=== PATIENT | male | born 1980 | race American Indian/Alaskan Native ===

== ENCOUNTER 2022-04-08 12:03 | Inpatient (IN) | payer MEDICAID ==
[2022-04-08] MEDS ORDERED: ONDANSETRON 4 MG/2 ML INJ IV ONE (14:49)
[2022-04-08] MEDS ORDERED: SODIUM CHLORIDE 0.9% 1000 ML IV SOLN IV ONE (14:49)
[2022-04-08] MEDS ORDERED: cefTRIAXone/NS 1 GM/50 ML 1 GM/50 ML BAG IV ONE (14:49)
[2022-04-08] MEDS ORDERED: VANCOMYCIN 1,000 MG in SODIUM CHLORIDE 0.9% 500 ML 500 ML IV ONE (14:49)
[2022-04-08] MEDS ORDERED: VANCOMYCIN PHARMACY TO DOSE IV SCH (15:00)
--- NOTE | 2022-04-08 15:17 | XRay Report ---
CHEST 1 VIEW 04/08/2022 3:03 PM INDICATION / CLINICAL INFORMATION: HIV, septic in a week. COMPARISON: None available. FINDINGS: SUPPORT DEVICES: None. HEART / MEDIASTINUM: No significant abnormality. LUNGS / PLEURA: No significant pulmonary or pleural abnormality. No pneumothorax. ADDITIONAL FINDINGS: No significant additional findings. IMPRESSION: 1. No acute findings. Signer Name: Rishabh Ferreira MD Signed: 04/08/2022 3:13 PM Workstation Name: [id number] [id number]
[2022-04-08 15:33] LABS: Hematocrit 24.2 % (35.5-45.6); Hemoglobin 8.2 gm/dl (11.8-15.2); Mean Corpuscular HGB Conc 34 % (32-34); Mean Corpuscular Volume 81 fl (84-94); Platelet Count 426 K/mm3 (140-440); Red Blood Count 2.99 M/mm3 (3.65-5.03); Red Cell Distribution Width 14.9 % (13.2-15.2)
[2022-04-08 15:42] LABS: INR 1.13 (0.87-1.13)
[2022-04-08 15:47] LABS: Alanine Aminotransferase 10 units/L (7-56); BUN/Creatinine Ratio 45
--- NOTE | 2022-04-08 15:50 | Emergency Department Report ---
ED General Adult HPI - General Chief complaint: Weakness Stated complaint: GENERAL WEAKNESS Time Seen by Provider: 04/08/22 14:09 Source: patient, EMS ( EMS documentation not available at time of chart dictation ), RN notes reviewed, old records reviewed Mode of arrival: Stretcher Limitations: Physical Limitation - History of Present Illness Initial comments: The patient was evaluated in the emergency department for symptoms described in the history of present illness. He/she was evaluated in the context of the global COVID-19 pandemic, which necessitated consideration that the patient might be at risk for infection with the virus that causes COVID-19. Institutional protocols and algorithms that pertain to the evaluation of patients at risk for COVID-19 are in a state of rapid change based on information released by regulatory bodies including the CDC and federal and state organizations. These policies and algorithms were followed during the patient's care in the emergency department. Please note that these policies, procedures and recommendations changed on a rapid basis. This is a 42-year-old gentleman with history of HIV, unknown CD4 count, unknown viral load, who is not compliant with antiviral therapy for the past 6 months, omar talbert presents to the ER today with a complaint of weakness, malaise, fatigue, inability to walk or complete ADLs, generalized weakness, and scrotal pain. He further reports that "my balls are busted." He is able to move 4 extremities. He endorses a gradual decline in functional status over the past 6 months. He used to receive his HIV care at [facility]. He is not taking his antivirals. He denies headache, neck pain, chest pain, abdominal pain, shortness of breath. His symptoms are constant, gradually getting worse, testicular pain increases with palpation, and decreases with rest -: Gradual, days(s), week(s) Location: genitals Quality: stabbing, aching Consistency: constant Improves with: rest Worsens with: movement - Related Data Allergies Allergy/AdvReac Type Severity Reaction Status Date / Time No Known Allergies Allergy Verified 04/08/22 12:08 ED Review of Systems ROS: Stated complaint: GENERAL WEAKNESS Other details as noted in HPI Constitutional: malaise, weakness. denies: fever Eyes: denies: vision change Respiratory: denies: cough Cardiovascular: denies: chest pain Gastrointestinal: denies: abdominal pain Genitourinary: testicular pain Musculoskeletal: denies: back pain Skin: rash, lesions Neurological: weakness Psychiatric: anxiety ED Physical Exam - General Limitations: Physical Limitation General appearance: alert, anxious, in distress - Head Head exam: Present: normocephalic, other (Temporal wasting is noted) - Eye Eye exam: Present: normal appearance, EOMI - ENT ENT exam: Present: normal exam, mucous membranes dry, normal external ear exam, other (Poor dentition is noted). Absent: mucous membranes moist - Neck Neck exam: Present: normal inspection, full ROM. Absent: tenderness, meningismus - Respiratory Respiratory exam: Present: normal lung sounds bilaterally, accessory muscle use. Absent: respiratory distress, wheezes, rales, rhonchi, stridor, decreased breath sounds - Cardiovascular Cardiovascular Exam: Present: normal rhythm, tachycardia. Absent: bradycardia, irregular rhythm, systolic murmur, diastolic murmur, rubs, gallop - GI/Abdominal GI/Abdominal exam: Present: soft. Absent: distended, tenderness, guarding, rebound, rigid, pulsatile mass - Rectal Rectal exam: Present: normal inspection - exam: Present: testicular tenderness, other (Obvious open wounds noted to the bilateral testicles, with purulent discharge. There is testicular tenderness noted). Absent: normal inspection External exam: Present: erythema, swelling, other (There is no peridium tenderness.). Absent: normal external exam - Extremities Exam Extremities exam: Present: full ROM, other (2+ pulses noted in the bilateral upper and lower extremities. There is no palpable cord. negative Homans sign. Muscular compartments are soft. The pelvis is stable.). Absent: normal inspection, calf tenderness - Back Exam Back exam: Present: normal inspection. Absent: tenderness, CVA tenderness (R), CVA tenderness (L), paraspinal tenderness, vertebral tenderness - Neurological Exam Neurological exam: Present: alert, other (There is no facial droop. The tongue is midline. EOMI. 5 out of 5 strength in 4 extremities). Absent: motor sensory deficit - Psychiatric Psychiatric exam: Present: anxious - Skin Skin exam: Present: warm, normal color, rash, other (Nonblanching macules and papules noted on the palms, feet, upper and lower extremities). Absent: vesicles, pallor, abrasion ED Course Vital Signs 04/08/22 04/08/22 04/08/22 12:06 13:30 13:46 Temperature 98.1 F Pulse Rate 123 H 116 H Respiratory 14 12 Rate Blood Pressure 139/103 Blood Pressure 131/110 [Left] O2 Sat by Pulse 99 97 Oximetry 04/08/22 04/08/22 04/08/22 14:00 14:16 14:30 Temperature Pulse Rate 115 H 115 H 118 H Respiratory 15 12 14 Rate Blood Pressure 139/103 129/101 129/101 Blood Pressure [Left] O2 Sat by Pulse Oximetry 04/08/22 04/08/22 04/08/22 14:46 14:52 15:00 Temperature 98.4 F Pulse Rate 119 H 111 H 109 H Respiratory 17 18 11 L Rate Blood Pressure 129/101 129/101 Blood Pressure 144/90 [Left] O2 Sat by Pulse 99 Oximetry 04/08/22 04/08/22 04/08/22 15:16 15:30 15:46 Temperature Pulse Rate 106 H 104 H 103 H Respiratory 12 15 20 Rate Blood Pressure 149/99 149/99 151/99 Blood Pressure [Left] O2 Sat by Pulse Oximetry 04/08/22 04/08/22 04/08/22 16:00 16:10 16:16 Temperature Pulse Rate 100 H 105 H Respiratory 16 14 Rate Blood Pressure 151/99 148/99 Blood Pressure [Left] O2 Sat by Pulse 91 99 94 Oximetry 04/08/22 04/08/22 04/08/22 16:24 16:30 16:46 Temperature 98.5 F Pulse Rate 111 H 97 H 90 Respiratory 18 11 L 12 Rate Blood Pressure 148/99 148/99 167/105 Blood Pressure [Left] O2 Sat by Pulse 99 100 84 Oximetry 04/08/22 04/08/22 04/08/22 17:00 17:16 17:30 Temperature Pulse Rate 100 H 95 H 86 Respiratory 12 15 13 Rate Blood Pressure 167/105 149/104 149/104 Blood Pressure [Left] O2 Sat by Pulse Oximetry 04/08/22 04/08/22 04/08/22 17:46 18:00 18:16 Temperature Pulse Rate 86 89 94 H Respiratory 12 16 14 Rate Blood Pressure 160/107 160/107 149/104 Blood Pressure [Left] O2 Sat by Pulse 93 Oximetry 04/08/22 18:30 Temperature Pulse Rate 96 H Respiratory 10 L Rate Blood Pressure 149/104 Blood Pressure [Left] O2 Sat by Pulse 92 Oximetry - Reevaluation(s) Reevaluation #1: 04/08/22 19:22 Differential diagnosis, including but not limited to: Disseminated syphilis, HIV/AIDS, scrotal abscess, cellulitis, Alissa's gangrene Assessment and plan: 42-year-old gentleman with complaints of weakness, malaise, fatigue, tachycardia, with lactic acidosis, likely experiencing natural history of untreated HIV/AIDS. He is awake, alert, oriented and not encephalopathic and he does not have meningeal signs. He has nonblanching macules which are nontender on his upper and lower extremities, palms and soles, very suspicious for syphilis. Chest x-ray unremarkable. Abdomen soft and benign. Scrotal exam shows obvious scrotal wounds, with purulent discharge, suspicious for scrotal wound and infection. Clinically, the perineum does not appear to be involved, and I do not think that this patient has Joe's gangrene. A code sepsis is called overhead. Treat patient's symptoms, and start appropriate broad-spectrum antibiotics. Patient will be admitted to our medical service with urology consultation. Contacted urology, Dr. Norwood. Discussed the patient's history, physical, laboratory studies and clinical impression. His group will follow in consultation. I do not suspect Alissa's gangrene. Nevertheless, we will obtain CT imaging abdomen pelvis We will reassess. 04/08/22 19:54 Dr Missy Faustin to admit to IMS 04/08/22 20:22 Patient reports no sexual contact for months. Therefore, monkey pox unlikely Reevaluation #2: 04/08/22 20:48 CT scan abdomen pelvis reviewed and appreciated. Patient reports history of open wound to his testicles that is chronic. This is not an acute infection. I would expect the CT scan findings, and it appears that there is communication with the testicles in the outside environment. Patient will require medical optimization and resuscitation prior to operative intervention. - Consultations Consultation #1: 04/08/22 20:10 Dr Garsia of ID to follow in consultation Recommends Flagyl every 8 hours. If patient sexually active with any partners in the past 2 months, consider sending swab for monkey pox. ED Medical Decision Making - Lab Data Result diagrams: 04/08/22 14:59 04/08/22 14:59 Vital Signs 04/08/22 04/08/22 12:06 14:52 Temperature 98.1 F 98.4 F Pulse Rate 123 H 111 H Respiratory 14 18 Rate Blood Pressure 131/110 144/90 [Left] O2 Sat by Pulse 99 99 Oximetry Lab Results 04/08/22 04/08/22 04/08/22 Range/Units 14:59 14:59 14:59 WBC 6.6 (4.5-11.0) K/mm3 RBC 2.99 L (3.65-5.03) M/mm3 Hgb 8.2 L (11.8-15.2) gm/dl Hct 24.2 L (35.5-45.6) % MCV 81 L (84-94) fl MCH 28 (28-32) pg MCHC 34 (32-34) % RDW 14.9 (13.2-15.2) % Plt Count 426 (140-440) K/mm3 [facility] [facility] % (Auto) Rn Field PT 15.8 H (12.2-14.9) Sec. INR 1.13 (0.87-1.13) Sodium 135 L (137-145) mmol/L Potassium 4.9 (3.6-5.0) mmol/L Chloride 98.0 (98-107) mmol/L Carbon Dioxide 24 (22-30) mmol/L Anion Gap 18 mmol/L BUN 48 H (9-20) mg/dL Creatinine 1.2 (0.8-1.3) mg/dL Estimated GFR > 60 ml/min BUN/Creatinine Ratio 45 % Glucose 103 H (75-100) mg/dL Calcium 8.8 (8.4-10.2) mg/dL Magnesium 2.60 H (1.7-2.3) mg/dL Total Bilirubin 0.30 (0.1-1.2) mg/dL AST 27 (5-40) units/L ALT 10 (7-56) units/L Alkaline Phosphatase 255 H (35-129) units/L Total Creatine Kinase 74 (55-170) units/L Total Protein 10.4 H (6.3-8.2) g/dL Albumin 2.9 L (3.9-5) g/dL Albumin/Globulin Ratio 0.4 % - Radiology Data Radiology results: pending, report reviewed, image reviewed CT ABDOMEN AND PELVIS WITH IV CONTRAST INDICATION: Testicular wound, infection, end-stage HIV 60ml of omni 350. COMPARISON: None available. TECHNIQUE: All CT scans at this facility use dose modulation, automated exposure control, iterative reconstruction or weight based dosing, when appropriate, to reduce radiation dose to as low as reasonably achievable. FINDINGS: Lung Bases: Punctate lucencies in both lower lungs may be tiny intraparenchymal blebs. Skeletal System: No acute abnormality. ABDOMEN: Liver: No significant abnormality. Gallbladder: No significant abnormality. Bile Ducts: There is mild intrahepatic and common duct dilatation. Adrenals: No significant abnormality. Right Kidney: No significant abnormality. Left Kidney: No significant abnormality. Pancreas: No significant abnormality. Spleen: No significant abnormality. Upper GI tract: No significant abnormality. Lymph Nodes: No significant adenopathy. Aorta: No significant abnormality. Additional Findings: Small bowel is diffusely fluid-filled and mildly distended. Mild diffuse anasarca. PELVIS: Colon: No acute abnormality. Urinary Bladder and Distal Ureters: Bladder is distended. Appendix: Not visualized. Lymph Nodes: No significant adenopathy. Additional Findings: Edema and several punctate foci of gas are noted at the base of the penis. Right lateral to the prostate, there is a curvilinear gas and fluid collection which measures 2.6 x 1.1 cm on axial image 78. There is diffuse edema within the perineal soft tissues, these are not completely included. IMPRESSION: 1. Diffuse soft tissue edema about the perineum extending to the base of the penis and scrotum. There are several associated punctate foci of soft tissue gas. This is incompletely included. Findings are consistent with infection. In addition, there is a persistent gas and fluid collection right lateral to the prostate which measures 2.6 x 1.1 cm. This could be a small abscess. 2. Bladder is distended. 3. Small bowel is somewhat diffusely fluid-filled suggestive of enteritis. 4. There is mild biliary dilatation. This is of uncertain etiology. Additional incidental findings as above.. Signer Name: Ramon Corbett MD Signed: 04/08/2022 7:42 PM Workstation Name: [id number] Critical Care Time: Yes Critical care time in (mins) excluding proc time.: 35 Critical care attestation.: If time is entered above; I have spent that time in minutes in the direct care of this critically ill patient, excluding procedure time. ED Disposition Clinical Impression: Infection of scrotum, HIV disease, Dehydration, Failure to thrive, Anemia, Noncompliance UTI (urinary tract infection) Qualifiers: Encounter type: initial encounter Disposition: 09 ADMITTED INPATIENT Is pt being admited?: Yes Does the pt Need Aspirin: No Condition: Poor
[2022-04-08 15:51] LABS: Albumin 2.9 g/dL (3.9-5); Blood Urea Nitrogen 48 mg/dL (9-20); Calcium 8.8 mg/dL (8.4-10.2); Hemolysis Index 102
[2022-04-08] MEDS ORDERED: VANCOMYCIN/NS 1 GM/250 ML 1 GM/250 ML BAG IV ONE (16:00)
[2022-04-08 16:18] LABS: Anisocytosis 1+; Basophils % (Manual) 0 % (0.0-1.8); Eosinophils % (Manual) 0 % (0.0-4.3); Platelet Estimate Consistent w Auto; Total Cells Counted 100
[2022-04-08 18:07] LABS: Bacteria,Urine 4+ /HPF (Negative); Mucus,Urine FEW /HPF
[2022-04-08 18:14] LABS: Color,Urine Straw (Yellow)
--- NOTE | 2022-04-08 19:51 | History and Physical Report ---
History of Present Illness Chief complaint: My balls are busted History of present illness: 42 YO Male with HIV Disease/AIDS with Unknown Viral load, Medication Noncompliance, Malnutrition presents ED for evaluation. Patient reports "my balls are busted". Patient states that he has experienced generalized weakness over the past 6 months with worsening symptoms over the same timeframe. Patient acknowledges generalized weakness, malaise, fatigue. Patient states that he has experienced "a pain over the past 2 weeks with worsening symptoms over the same timeframe. Patient states that he has become unable to walk due to scrotal pain. Patient knowledges foul-smelling discharge from the scrotum. EMS was notified and upon arrival the patient was found to be in distress and subsequent transported to [facility] for further care and evaluation of the aforementioned symptoms. The patient was seen and evaluated emergency department. All lab and imaging studies reviewed. Patient found to have sepsis complicated by scrotal cellulitis, malnutrition, HIV disease, as well as urinary tract infection, and disseminated syphilis. Patient admitted to medical floor and initiated on sepsis protocol. Urology team consulted in ED for suspected surgical intervention. Infectious disease team consulted in ED. Patient denies fever, chills, chest pain, palpitation, adductive cough, skin rash, recent contact, or known exposure to COVID-19. No prior admission for review. No medication listed at time of admission for reconciliation. Advanced care planning conducted in ED. Past History Past Medical History: HIV/AIDS, other (See HPI) Past Surgical History: No surgical history, Other (Reviewed) Social history: single. denies: smoking, alcohol abuse, prescription drug abuse Family history: hypertension Medications and Allergies Allergies Allergy/AdvReac Type Severity Reaction Status Date / Time No Known Allergies Allergy Verified 04/08/22 12:08 Review of Systems Constitutional: weight loss, weakness, malaise, no weight gain, no fever, no chills, no night sweats Ears, nose, mouth and throat: no ear pain, no ear discharge, no tinnitis, no decreased hearing Cardiovascular: no chest pain, no orthopnea, no palpitations, no rapid/irregular heart beat Respiratory: no cough, no cough with sputum, no shortness of breath, no dyspnea on exertion Gastrointestinal: no abdominal pain, no nausea, no vomiting, no diarrhea Genitourinary Male: genital pain, genital sores, no hematuria Rectal: no pain, no incontinence, no bleeding Musculoskeletal: no neck stiffness, no neck pain, no shooting arm pain Integumentary: no rash, no sores, no jaundice Neurological: no head injury, no paralysis, no numbness, no tingling, no syncope Psychiatric: no anxiety, no memory loss, no sleep disturbances, no insomnia, no change in appetite, no change in libido Endocrine: no cold intolerance, no polyphagia, no polydipsia, no nocturia Hematologic/Lymphatic: no easy bruising, no easy bleeding Allergic/Immunologic: no urticaria, no allergic rhinitis, no wheezing Exam - Constitutional Vitals: Temp Pulse Resp BP Pulse Ox 98.5 F 96 H 10 L 149/104 92 04/08/22 16:24 04/08/22 18:30 04/08/22 18:30 04/08/22 18:30 04/08/22 18:30 General appearance: Present: mild distress, cachectic - EENT Eyes: Present: PERRL ENT: hearing intact, clear oral mucosa - Neck Neck: Present: supple, normal ROM - Respiratory Respiratory effort: normal Respiratory: bilateral: CTA - Cardiovascular Rhythm: regular (Tachycardia) Heart Sounds: Present: S1 & S2 - Extremities Extremities: pulses symmetrical, No edema Peripheral Pulses: abnormal (Capillary refill greater than 3.5 seconds) - Abdominal General gastrointestinal: Present: soft, non-tender, non-distended, normal bowel sounds Male genitourinary: Present: scrotal edema (Scrotal ulceration with discharge.) - Rectal Rectal Exam: normal exam-external/orifice - Integumentary Integumentary: Present: dry, clammy, decreased turgor - Musculoskeletal Musculoskeletal: generalized weakness - Psychiatric Psychiatric: appropriate mood/affect, intact judgment & insight, memory intact Results - Labs CBC & Chem 7: 04/08/22 14:59 04/08/22 14:59 Labs: Abnormal lab results 04/08/22 04/08/22 04/08/22 Range/Units 14:59 14:59 14:59 RBC 2.99 L (3.65-5.03) M/mm3 Hgb 8.2 L (11.8-15.2) gm/dl Hct 24.2 L (35.5-45.6) % MCV 81 L (84-94) fl Seg Neuts % (Manual) 88.0 H (40.0-70.0) % Lymphocytes % (Manual) 7.0 L (13.4-35.0) % Lymphocytes # (Manual) 0.5 L (1.2-5.4) K/mm3 PT (12.2-14.9) Sec. Sodium 135 L (137-145) mmol/L BUN 48 H (9-20) mg/dL Glucose 103 H (75-100) mg/dL Lactic Acid 2.40 H* (0.7-2.0) mmol/L Magnesium 2.60 H (1.7-2.3) mg/dL Alkaline Phosphatase 255 H (35-129) units/L Total Protein 10.4 H (6.3-8.2) g/dL Albumin 2.9 L (3.9-5) g/dL Urine WBC (Auto) (0.0-6.0) /HPF Syphilis IgG/IgM Ab (NonReactive) 04/08/22 04/08/22 04/08/22 Range/Units 14:59 14:59 Unknown RBC (3.65-5.03) M/mm3 Hgb (11.8-15.2) gm/dl Hct (35.5-45.6) % MCV (84-94) fl Seg Neuts % (Manual) (40.0-70.0) % Lymphocytes % (Manual) (13.4-35.0) % Lymphocytes # (Manual) (1.2-5.4) K/mm3 PT 15.8 H (12.2-14.9) Sec. Sodium (137-145) mmol/L BUN (9-20) mg/dL Glucose (75-100) mg/dL Lactic Acid (0.7-2.0) mmol/L Magnesium (1.7-2.3) mg/dL Alkaline Phosphatase (35-129) units/L Total Protein (6.3-8.2) g/dL Albumin (3.9-5) g/dL Urine WBC (Auto) 163.0 H (0.0-6.0) /HPF Syphilis IgG/IgM Ab Reactive A (NonReactive) Assessment and Plan - Patient Problems (1) Sepsis Current Visit: Yes Status: Acute Plan to address problem: Sepsis protocol: CBC, CMP, chest x-ray, urinalysis, IV antibiotic therapy, IV fluid resuscitation therapy, maintain mean arterial pressure greater than equal to 65, blood culture. Serial lactic acid level. (2) Cellulitis of scrotum Current Visit: Yes Status: Acute Plan to address problem: CT scan abdomen and pelvis, urology team consulted. Patient pending surgical intervention. (3) Syphilis Current Visit: Yes Status: Acute Plan to address problem: Continue medical management, infectious disease service consulted, IV antibiotic therapy, supportive care. (4) Malnutrition Current Visit: Yes Status: Acute Qualifiers: Malnutrition type: protein-calorie malnutrition Protein-calorie malnutrition severity: severe Qualified Code(s): E43 - Unspecified severe protein-calorie malnutrition Plan to address problem: Increase protein intake, dietary supplementation. (5) HIV disease Current Visit: Yes Status: Acute Plan to address problem: Infectious disease service consulted. Patient noncompliant with any retroviral therapy. Unknown CD4 count. (6) Noncompliance Current Visit: Yes Status: Acute Plan to address problem: Patient counseled. Patient acknowledges understanding instructions. (7) UTI (urinary tract infection) Current Visit: Yes Status: Acute Qualifiers: Encounter type: initial encounter Plan to address problem: Urinalysis, IV antibiotic therapy, supportive care. (8) DVT prophylaxis Current Visit: Yes Status: Acute Plan to address problem: SCDs bilateral lower extremities while in bed (9) Advance care planning Current Visit: Yes Status: Acute Plan to address problem: Disease education conducted, care plan discussed, diagnoses discussed, prognosis discussed, patient is full code. Patient acknowledges understanding and agreement with care plan, +30 minutes. (10) Preventative health care Current Visit: Yes Status: Acute Plan to address problem: Patient counseled regarding medication compliance, outpatient follow-up with infectious disease service, outpatient follow-up with primary care physician for all age and risk factor appropriate screening test. +30 minutes.
[2022-04-08] MEDS ORDERED: HYDROmorphone 0.5 MG/0.5 ML INJ IV PRN ×2 (19:52)
[2022-04-08] MEDS ORDERED: ONDANSETRON 4 MG/2 ML INJ IV PRN (19:52)
[2022-04-08] MEDS ORDERED: oxyCODONE /ACETAMINOPHEN 5-325MG TAB PO PRN (19:52)
[2022-04-08] MEDS ORDERED: ALBUTEROL 2.5 MG/3 ML NEBU IH PRN (19:52)
[2022-04-08] MEDS ORDERED: ACETAMINOPHEN 325 MG TAB PO PRN ×2 (19:52)
--- NOTE | 2022-04-08 20:47 | Cat Scan Report ---
CT ABDOMEN AND PELVIS WITH IV CONTRAST INDICATION: Testicular wound, infection, end-stage HIV 60ml of omni 350. COMPARISON: None available. TECHNIQUE: All CT scans at this facility use dose modulation, automated exposure control, iterative reconstructi on or weight based dosing, when appropriate, to reduce radiation dose to as low as reasonably achieva ble. FINDINGS: Lung Bases: Punctate lucencies in both lower lungs may be tiny intraparenchymal blebs. Skeletal System: No acute abnormality. ABDOMEN: Liver: No significant abnormality. Gallbladder: No significant abnormality. Bile Ducts: There is mild intrahepatic and common duct dilatation. Adrenals: No significant abnormality. Right Kidney: No significant abnormality. Left Kidney: No significant abnormality. Pancreas: No significant abnormality. Spleen: No significant abnormality. Upper GI tract: No significant abnormality. Lymph Nodes: No significant adenopathy. Aorta: No significant abnormality. Additional Findings: Small bowel is diffusely fluid-filled and mildly distended. Mild diffuse anasarc a. PELVIS: Colon: No acute abnormality. Urinary Bladder and Distal Ureters: Bladder is distended. Appendix: Not visualized. Lymph Nodes: No significant adenopathy. Additional Findings: Edema and several punctate foci of gas are noted at the base of the penis. Right lateral to the prostate, there is a curvilinear gas and fluid collection which measures 2.6 x 1.1 cm on axial image 78. There is diffuse edema within the perineal soft tissues, these are not completely included. IMPRESSION: 1. Diffuse soft tissue edema about the perineum extending to the base of the penis and scrotum. Ther e are several associated punctate foci of soft tissue gas. This is incompletely included. Findings ar e consistent with infection. In addition, there is a persistent gas and fluid collection right latera l to the prostate which measures 2.6 x 1.1 cm. This could be a small abscess. 2. Bladder is distended. 3. Small bowel is somewhat diffusely fluid-filled suggestive of enteritis. 4. There is mild biliary dilatation. This is of uncertain etiology. Additional incidental findings as above.. Signer Name: Ramon Corbett MD Signed: 04/08/2022 8:42 PM Workstation Name: [id number]
[2022-04-08] MEDS ORDERED: metroNIDAZOLE/NS 500 MG/100 ML 500 MG/100 ML BAG IV ONE (21:00)
[2022-04-09 02:42] LABS: Hematocrit 26.1 % (35.5-45.6); Hemoglobin 8.1 gm/dl (11.8-15.2); Mean Corpuscular HGB Conc 31 % (32-34); Mean Corpuscular Volume 84 fl (84-94); Platelet Count 328 K/mm3 (140-440); Red Blood Count 3.09 M/mm3 (3.65-5.03); Red Cell Distribution Width 15.4 % (13.2-15.2)
[2022-04-09 02:55] LABS: BUN/Creatinine Ratio 41; Blood Urea Nitrogen 37 mg/dL (9-20); Hemolysis Index 76
[2022-04-09 03:31] LABS: Basophils % (Manual) 0 % (0.0-1.8); Eosinophils % (Manual) 0 % (0.0-4.3); Total Cells Counted 100
[2022-04-09 03:32] LABS: Hypochromasia Few; Platelet Estimate Consistent w Auto
[2022-04-09] MEDS: SODIUM CHLORIDE 0.9% 1000 ML 1,000 ML IV SCH ×2 (07:05→21:36)
--- NOTE | 2022-04-09 09:16 | Progress Note ---
History Interval history: 42 YO Male with HIV Disease/AIDS with Unknown Viral load, Medication Noncompliance, Malnutrition presents ED for evaluation of generalized weakness over the past 6 months with malaise, fatigue and 2 week scrotal pain. Patient found to have sepsis complicated by scrotal cellulitis, malnutrition, HIV disease, as well as urinary tract infection, and disseminated syphilis. Sepsis Scrotal cellulitis Syphilis Enteritis Protein calorie malnutrition HIV disease UTI Medical noncompliance 04/09/2022. Continue IV antibiotics and await ID consultation. Follow-up blood and urine cultures. Await urology consultation. CT scan reveals diffuse soft tissue edema about the perineum extending to the base of the penis and scrotum. There are several associated punctate foci of soft tissue gas. Patient has persistent gas and fluid collection of the right lateral to the prostate which measures 2.6 x 1.1 cm. Bladder is also distended. Hospitalist Physical - Constitutional Vitals: Temp Pulse Resp BP Pulse Ox 97.8 F 79 18 131/94 95 04/09/22 04:20 04/09/22 04:20 04/09/22 04:20 04/09/22 04:20 04/09/22 04:20 General appearance: Present: mild distress, cachectic Results - Labs CBC & Chem 7: 04/09/22 02:15 04/09/22 02:15 Labs: Laboratory Last Values WBC 4.3 K/mm3 (4.5-11.0) L 04/09/22 02:15 RBC 3.09 M/mm3 (3.65-5.03) L 04/09/22 02:15 Hgb 8.1 gm/dl (11.8-15.2) L 04/09/22 02:15 Hct 26.1 % (35.5-45.6) L 04/09/22 02:15 MCV 84 fl (84-94) 04/09/22 02:15 MCH 26 pg (28-32) L 04/09/22 02:15 MCHC 31 % (32-34) L 04/09/22 02:15 RDW 15.4 % (13.2-15.2) H 04/09/22 02:15 Plt Count 328 K/mm3 (140-440) 04/09/22 02:15 [place] % (Auto) Panel Flow Machine Operator 04/09/22 02:15 Add Manual Diff Complete 04/09/22 02:15 Total Counted 100 04/09/22 02:15 Seg Neuts % (Manual) 69.0 % (40.0-70.0) 04/09/22 02:15 Band Neutrophils % 0 % 04/09/22 02:15 Lymphocytes % (Manual) 12.0 % (13.4-35.0) L 04/09/22 02:15 Reactive Lymphs % (Man) 0 % 04/09/22 02:15 Monocytes % (Manual) 19.0 % (0.0-7.3) H 04/09/22 02:15 Eosinophils % (Manual) 0 % (0.0-4.3) 04/09/22 02:15 Basophils % (Manual) 0 % (0.0-1.8) 04/09/22 02:15 Metamyelocytes % 0 % 04/09/22 02:15 Myelocytes % 0 % 04/09/22 02:15 Promyelocytes % 0 % 04/09/22 02:15 Blast Cells % 0 % 04/09/22 02:15 Nucleated RBC % Not Reportable 04/09/22 02:15 Seg Neutrophils # Man 3.0 K/mm3 (1.8-7.7) 04/09/22 02:15 Band Neutrophils # 0.0 K/mm3 04/09/22 02:15 Lymphocytes # (Manual) 0.5 K/mm3 (1.2-5.4) L 04/09/22 02:15 Abs React Lymphs (Man) 0.0 K/mm3 04/09/22 02:15 Monocytes # (Manual) 0.8 K/mm3 (0.0-0.8) 04/09/22 02:15 Eosinophils # (Manual) 0.0 K/mm3 (0.0-0.4) 04/09/22 02:15 Basophils # (Manual) 0.0 K/mm3 (0.0-0.1) 04/09/22 02:15 Metamyelocytes # 0.0 K/mm3 04/09/22 02:15 Myelocytes # 0.0 K/mm3 04/09/22 02:15 Promyelocytes # 0.0 K/mm3 04/09/22 02:15 Blast Cells # 0.0 K/mm3 04/09/22 02:15 WBC Morphology Not Reportable 04/09/22 02:15 Hypersegmented Neuts Not Reportable 04/09/22 02:15 Hyposegmented Neuts Not Reportable 04/09/22 02:15 Hypogranular Neuts Not Reportable 04/09/22 02:15 Smudge Cells Not Reportable 04/09/22 02:15 Toxic Granulation Not Reportable 04/09/22 02:15 Toxic Vacuolation Not Reportable 04/09/22 02:15 Dohle Bodies Not Reportable 04/09/22 02:15 Pelger-Huet Anomaly Not Reportable 04/09/22 02:15 Rylee Rods Not Reportable 04/09/22 02:15 Platelet Estimate Consistent w auto 04/09/22 02:15 Clumped Platelets Not Reportable 04/09/22 02:15 Plt Clumps, EDTA Not Reportable 04/09/22 02:15 Large Platelets Not Reportable 04/09/22 02:15 Giant Platelets Not Reportable 04/09/22 02:15 Platelet Satelliting Not Reportable 04/09/22 02:15 Plt Morphology Comment Not Reportable 04/09/22 02:15 RBC Morphology Not Reportable 04/09/22 02:15 Dimorphic RBCs Not Reportable 04/09/22 02:15 Polychromasia Not Reportable 04/09/22 02:15 Hypochromasia Few 04/09/22 02:15 Poikilocytosis Not Reportable 04/09/22 02:15 Anisocytosis Not Reportable 04/09/22 02:15 Microcytosis Not Reportable 04/09/22 02:15 Macrocytosis Not Reportable 04/09/22 02:15 Spherocytes Not Reportable 04/09/22 02:15 Pappenheimer Bodies Not Reportable 04/09/22 02:15 Sickle Cells Not Reportable 04/09/22 02:15 Target Cells Not Reportable 04/09/22 02:15 Tear Drop Cells Not Reportable 04/09/22 02:15 Ovalocytes Not Reportable 04/09/22 02:15 Helmet Cells Not Reportable 04/09/22 02:15 Zamora-Corazon Bodies Not Reportable 04/09/22 02:15 Calpine Rings Not Reportable 04/09/22 02:15 Quoc Cells Not Reportable 04/09/22 02:15 Bite Cells Not Reportable 04/09/22 02:15 Crenated Cell Not Reportable 04/09/22 02:15 Elliptocytes Not Reportable 04/09/22 02:15 Acanthocytes (Spur) Not Reportable 04/09/22 02:15 Rouleaux Not Reportable 04/09/22 02:15 Hemoglobin C Crystals Not Reportable 04/09/22 02:15 Schistocytes Not Reportable 04/09/22 02:15 Malaria parasites Not Reportable 04/09/22 02:15 Gabo Bodies Not Reportable 04/09/22 02:15 Hem Pathologist Commnt No 04/09/22 02:15 PT 15.8 Sec. (12.2-14.9) H 04/08/22 14:59 INR 1.13 (0.87-1.13) 04/08/22 14:59 Sodium 140 mmol/L (137-145) 04/09/22 02:15 Potassium 4.9 mmol/L (3.6-5.0) 04/09/22 02:15 Chloride 105.0 mmol/L (98-107) 04/09/22 02:15 Carbon Dioxide 22 mmol/L (22-30) 04/09/22 02:15 Anion Gap 18 mmol/L 04/09/22 02:15 BUN 37 mg/dL (9-20) H 04/09/22 02:15 Creatinine 0.9 mg/dL (0.8-1.3) 04/09/22 02:15 Estimated GFR > 60 ml/min 04/09/22 02:15 BUN/Creatinine Ratio 41 % 04/09/22 02:15 Glucose 82 mg/dL (75-100) 04/09/22 02:15 Lactic Acid 1.10 mmol/L (0.7-2.0) 04/09/22 07:25 Calcium 8.0 mg/dL (8.4-10.2) L 04/09/22 02:15 Magnesium 2.60 mg/dL (1.7-2.3) H 04/08/22 14:59 Total Bilirubin 0.30 mg/dL (0.1-1.2) 04/08/22 14:59 AST 27 units/L (5-40) 04/08/22 14:59 ALT 10 units/L (7-56) 04/08/22 14:59 Alkaline Phosphatase 255 units/L (35-129) H 04/08/22 14:59 Total Creatine Kinase 74 units/L (55-170) 04/08/22 14:59 Total Protein 10.4 g/dL (6.3-8.2) H 04/08/22 14:59 Albumin 2.9 g/dL (3.9-5) L 04/08/22 14:59 Albumin/Globulin Ratio 0.4 % 04/08/22 14:59 TSH 2.390 mlU/mL (0.270-4.200) 04/08/22 14:59 Free T4 0.99 ng/dL (0.76-1.46) 04/08/22 14:59 Urine Color Straw (Yellow) 04/08/22 Unknown Urine Turbidity Cloudy (Clear) 04/08/22 Unknown Specific [place] (Man) 1.025 (1.003-1.030) 04/08/22 Unknown Ur Protein (Man) 2+ mg/dL (Negative) 04/08/22 Unknown Ur Ketones (Man) 5 (Negative) 04/08/22 Unknown Ur Nitrite (Man) Positive (Negative) 04/08/22 Unknown Ur Reducing Substances Not Reportable 04/08/22 Unknown Urine Bilirubin (Man) Negative (Negative) 04/08/22 Unknown Urine Ictotest Not Reportable 04/08/22 Unknown Leukocyte Esterase (Man) Moderate (Negative) 04/08/22 Unknown Urine WBC (Auto) 163.0 /HPF (0.0-6.0) H 04/08/22 Unknown Urine RBC (Auto) 10.0 /HPF (0.0-6.0) 04/08/22 Unknown Urine Bacteria (Auto) 4+ /HPF (Negative) 04/08/22 Unknown Urine RBC (Manual) 3+ (Negative) 04/08/22 Unknown Urine Mucus Few /HPF 04/08/22 Unknown Syphilis IgG/IgM Ab Reactive (NonReactive) A 04/08/22 14:59 RPR Titer 1:800 (1:1-1:2) 04/08/22 14:59 Blood Type B POSITIVE 04/08/22 23:55 Antibody Screen Negative 04/08/22 23:55 Microbiology: Microbiology 04/08/22 14:59 Peripheral/Venous Blood Culture - Preliminary Culture in Progress 04/08/22 14:59 Peripheral/Venous Blood Culture - Preliminary Culture in Progress Bright/IV: Voiding Method Urinal Active Medications - Current Medications Current Medications: Generic Name Dose Route Start Last Admin Trade Name Arleth PRN Reason Stop Dose Admin Acetaminophen 650 mg 04/08/22 19:52 Acetaminophen 325 Mg Tab PO Q4H PRN Pain MILD(1-3)/Fever >100.5/CRUZ Albuterol 2.5 mg 04/08/22 19:52 Albuterol 2.5 Mg/3 Ml Nebu IH Q4HRT PRN Shortness Of Breath Hydromorphone HCl 0.25 mg 04/08/22 19:52 Hydromorphone 0.5 Mg/0.5 Ml Inj IV Q4H PRN Pain, Moderate (4-6) Hydromorphone HCl 0.5 mg 04/08/22 19:52 Hydromorphone 0.5 Mg/0.5 Ml Inj IV Q8H PRN Pain , Severe (7-10) Sodium Chloride 1,000 mls @ 125 mls/hr 04/08/22 20:00 04/09/22 07:05 Nacl 0.9% 1000 Ml IV 125 mls/hr DIRECT AKIN Administration Cefazolin Sodium 2 gm/ Sodium 100 mls @ 200 mls/hr 04/09/22 04:00 04/09/22 07:03 Chloride IV 200 mls/hr Q8HR AKIN Administration Protocol Ondansetron HCl 4 mg 04/08/22 19:52 Ondansetron 4 Mg/2 Ml Inj IV Q8H PRN Nausea And Vomiting Oxycodone/Acetaminophen 1 tab 04/08/22 19:52 Oxycodone /Acetaminophen 5-325mg Tab PO Q6H PRN Pain, Moderate (4-6) Sodium Chloride 10 ml 04/08/22 22:00 04/09/22 09:02 Sodium Chloride 0.9% 10 Ml Flush Syringe IV 10 ml BID AKIN Administration Sodium Chloride 10 ml 04/08/22 19:52 04/09/22 07:03 Sodium Chloride 0.9% 10 Ml Flush Syringe IV 10 ml PRN PRN Administration LINE FLUSH
--- NOTE | 2022-04-09 11:27 | Consultation ---
History of Present Illness - Reason for Consult Consult date: 04/09/22 HIV, syphilis, scrotal wound Requesting physician: DIANA LOBATO - History of Present Illness The patient is a 42-year-old male with HIV, AIDS, noncompliant with ART, used to follow-up at [facility] came into the emergency room yesterday with complaints of scrotal swelling and pain along with gradually declining functional status over the last 6 months. Not been sexually active for the last several months. Was found to have a scrotal wound with exposed testicle. Also with purulent discharge from that region. ID consulted for additional evaluation. Patient states he has not taken HIV meds for more than a year, used to follow-up at [facility]. He does not want to tell me the reason for his noncompliance. Not been sexually active for more than a year. Labs revealed WBC 6.6, platelet count 426, hemoglobin 8.2. Alkaline phosphatase 255, lactate 2.4. UA showed pyuria. RPR positive with titer 1: 800. Chest x-ray showed no evidence of pneumonia. CT abdomen and pelvis showed diffuse soft tissue edema around the perineum extending to the base of the penis and scrotum with several associated punctate foci of soft tissue gas. Enteritis and mild biliary dilatation were also seen. Review of Systems: General: no fevers,chills or rigors HEENT: no new visual disturbance Respiratory: No cough, sputum, hemoptysis or shortness of breath Cardiovascular: No chest pain, syncope Gastrointestinal: No nausea, vomiting or diarrhea Genitourinary: No dysuria or hematuria Musculoskeletal: No new or worsening neck pain or back pain Neurologic: No headaches, seizures Hematologic: No easy bruising or bleeding Endocrine: No night sweats or acute weight loss Skin: negative for rash, jaundice Psychiatric: No suicidal or homicidal ideation Past History Past Medical History: HIV/AIDS, other (See HPI) Past Surgical History: No surgical history, Other (Reviewed) Social history: single. denies: smoking, alcohol abuse, prescription drug abuse Family history: hypertension Medications and Allergies Allergies Allergy/AdvReac Type Severity Reaction Status Date / Time No Known Allergies Allergy Verified 04/08/22 12:08 Active Meds: Active Medications Acetaminophen (Acetaminophen 325 Mg Tab) 650 mg PO Q4H PRN PRN Reason: Pain MILD(1-3)/Fever >100.5/CRUZ Albuterol (Albuterol 2.5 Mg/3 Ml Nebu) 2.5 mg IH Q4HRT PRN PRN Reason: Shortness Of Breath Doxycycline Hyclate (Doxycycline 100 Mg Cap) 100 mg PO BID AKIN; Protocol Hydromorphone HCl (Hydromorphone 0.5 Mg/0.5 Ml Inj) 0.25 mg IV Q4H PRN PRN Reason: Pain, Moderate (4-6) Hydromorphone HCl (Hydromorphone 0.5 Mg/0.5 Ml Inj) 0.5 mg IV Q8H PRN PRN Reason: Pain , Severe (7-10) Sodium Chloride (Nacl 0.9% 1000 Ml) 1,000 mls @ 125 mls/hr IV DIRECT AKIN Last Admin: 04/09/22 07:05 Dose: 125 mls/hr Ceftriaxone Sodium (Rocephin/Ns 2 Gm/100 Ml) 2 gm in 100 mls @ 200 mls/hr IV Q24HR AKIN; Protocol Fluconazole (Diflucan) 200 mls @ 100 mls/hr IV Q24H AKIN; Protocol Metronidazole (Metronidazole 500 Mg Tab) 500 mg PO Q8HR AKIN; Protocol Nystatin (Nystatin 500,000 Unit/5 Ml Oral Liqd) 500,000 unit PO QID AKIN Ondansetron HCl (Ondansetron 4 Mg/2 Ml Inj) 4 mg IV Q8H PRN PRN Reason: Nausea And Vomiting Oxycodone/Acetaminophen (Oxycodone /Acetaminophen 5-325mg Tab) 1 tab PO Q6H PRN PRN Reason: Pain, Moderate (4-6) Sodium Chloride (Sodium Chloride 0.9% 10 Ml Flush Syringe) 10 ml IV BID AKIN Last Admin: 04/09/22 09:02 Dose: 10 ml Sodium Chloride (Sodium Chloride 0.9% 10 Ml Flush Syringe) 10 ml IV PRN PRN PRN Reason: LINE FLUSH Last Admin: 04/09/22 07:03 Dose: 10 ml Trimethoprim/Sulfamethoxazole (Sulfamethoxazole/Trimethoprim 800/160mg Ds Tab) 1 each PO DAILY AKIN; Protocol Physical Examination - Physical Exam Narrative exam: Physical Exam: Constitutional: Alert, cooperative. No acute distress. Cachexia Head, Ears, Nose: Normocephalic, atraumatic. External ears, nose normal Eyes: Conjunctivae/corneas clear. No icterus. No ptosis. Neck: Supple, no meningeal signs Oral: Severe oral thrush, poor dentition Cardiovascular: S1, S2 + Respiratory: Good air entry, clear to auscultation bilaterally GI: Soft, non-tender; bowel sounds normal. No peritoneal signs : Bright present, scrotal wound with purulence, exposed testicle Musculoskeletal: No pedal edema, no cyanosis. Cachexia Skin: Hypopigmented macular rash Hem/Lymphatic: No palpable cervical or supraclavicular nodes. No lymphangitis Psych: Mood sad, no agitation Neurological: Awake, alert, oriented. No gross abnormality - Constitutional Vitals: Vital Signs Temp Pulse Resp BP Pulse Ox 97.8 F 79 18 131/94 95 04/09/22 04:20 04/09/22 04:20 04/09/22 04:20 04/09/22 04:20 04/09/22 04:20 Temperature -Last 24 Hours Temperature 97.8 F Temperature 97.5 F Temperature 98.5 F Temperature 98.4 F Temperature 98.1 F Results - Labs CBC & Chem 7: 04/09/22 02:15 04/09/22 02:15 Labs: Abnormal lab results 04/08/22 04/08/22 04/08/22 Range/Units 14:59 14:59 14:59 WBC (4.5-11.0) K/mm3 RBC 2.99 L (3.65-5.03) M/mm3 Hgb 8.2 L (11.8-15.2) gm/dl Hct 24.2 L (35.5-45.6) % MCV 81 L (84-94) fl MCH (28-32) pg MCHC (32-34) % RDW (13.2-15.2) % Seg Neuts % (Manual) 88.0 H (40.0-70.0) % Lymphocytes % (Manual) 7.0 L (13.4-35.0) % Monocytes % (Manual) (0.0-7.3) % Lymphocytes # (Manual) 0.5 L (1.2-5.4) K/mm3 PT (12.2-14.9) Sec. Sodium 135 L (137-145) mmol/L BUN 48 H (9-20) mg/dL Glucose 103 H (75-100) mg/dL Lactic Acid 2.40 H* (0.7-2.0) mmol/L Calcium (8.4-10.2) mg/dL Magnesium 2.60 H (1.7-2.3) mg/dL Alkaline Phosphatase 255 H (35-129) units/L Total Protein 10.4 H (6.3-8.2) g/dL Albumin 2.9 L (3.9-5) g/dL Urine WBC (Auto) (0.0-6.0) /HPF Syphilis IgG/IgM Ab (NonReactive) 04/08/22 04/08/22 04/08/22 Range/Units 14:59 14:59 Unknown WBC (4.5-11.0) K/mm3 RBC (3.65-5.03) M/mm3 Hgb (11.8-15.2) gm/dl Hct (35.5-45.6) % MCV (84-94) fl MCH (28-32) pg MCHC (32-34) % RDW (13.2-15.2) % Seg Neuts % (Manual) (40.0-70.0) % Lymphocytes % (Manual) (13.4-35.0) % Monocytes % (Manual) (0.0-7.3) % Lymphocytes # (Manual) (1.2-5.4) K/mm3 PT 15.8 H (12.2-14.9) Sec. Sodium (137-145) mmol/L BUN (9-20) mg/dL Glucose (75-100) mg/dL Lactic Acid (0.7-2.0) mmol/L Calcium (8.4-10.2) mg/dL Magnesium (1.7-2.3) mg/dL Alkaline Phosphatase (35-129) units/L Total Protein (6.3-8.2) g/dL Albumin (3.9-5) g/dL Urine WBC (Auto) 163.0 H (0.0-6.0) /HPF Syphilis IgG/IgM Ab Reactive A (NonReactive) 04/09/22 04/09/22 Range/Units 02:15 02:15 WBC 4.3 L (4.5-11.0) K/mm3 RBC 3.09 L (3.65-5.03) M/mm3 Hgb 8.1 L (11.8-15.2) gm/dl Hct 26.1 L (35.5-45.6) % MCV (84-94) fl MCH 26 L (28-32) pg MCHC 31 L (32-34) % RDW 15.4 H (13.2-15.2) % Seg Neuts % (Manual) (40.0-70.0) % Lymphocytes % (Manual) 12.0 L (13.4-35.0) % Monocytes % (Manual) 19.0 H (0.0-7.3) % Lymphocytes # (Manual) 0.5 L (1.2-5.4) K/mm3 PT (12.2-14.9) Sec. Sodium (137-145) mmol/L BUN 37 H (9-20) mg/dL Glucose (75-100) mg/dL Lactic Acid (0.7-2.0) mmol/L Calcium 8.0 L (8.4-10.2) mg/dL Magnesium (1.7-2.3) mg/dL Alkaline Phosphatase (35-129) units/L Total Protein (6.3-8.2) g/dL Albumin (3.9-5) g/dL Urine WBC (Auto) (0.0-6.0) /HPF Syphilis IgG/IgM Ab (NonReactive) - Imaging and Cardiology Chest x-ray: report reviewed, image reviewed (no pneumonia) Assessment and Plan Cultures: 04/08/2022 blood culture: In process 04/08/2022 RPR: Reactive, titer: 1:800 A/P: 42-year-old male with HIV, AIDS, noncompliant with ART, used to follow-up at [facility] came into the emergency room yesterday with complaints of scrotal swelling and pain along with gradually declining functional status over the last 6 months: #Severe scrotal cellulitis, infected wound, exposed testicle: CT revealed soft tissue edema as well as punctate foci of soft tissue gas. Urology has been consulted. #Secondary syphilis/disseminated syphilis #Severe oral thrush, likely esophagitis as well #HIV with AIDS: Used to follow-up with [place], has not taken ART for more than a year, did not want to tell me the reason. #Protein calorie malnutrition Recs: -Empiric ceftriaxone, Flagyl, doxycycline, IV vancomycin -IV fluconazole + PO Nystatin swish and swallow for severe thrush -Follow-up urology consult -Wound culture ordered from scrotal region -HIV RNA PCR, CD4 count ordered -P.O. Bactrim ordered for prophylaxis -serum crypto Ag ordered -Poor prognosis overall Callie Garsia MD, FACP, [facility] O: [phone] F: [phone] C: [phone]
[2022-04-09] MEDS ORDERED: VANCOMYCIN PHARMACY TO DOSE IV SCH (12:00)
[2022-04-09] MEDS: cefTRIAXone/NS 2 GM/100 ML 2 GM/100 ML BAG IV SCH (12:10)
[2022-04-09] MEDS: VANCOMYCIN/NS 1 GM/250 ML 1 GM/250 ML BAG IV SCH (12:11)
[2022-04-09] MEDS: DOXYCYCLINE 100 MG CAP PO SCH ×2 (12:28→21:15)
[2022-04-09] MEDS: SULFAMETHOXAZOLE/TRIMETHOPRIM 800/160MG DS TAB PO SCH (12:28)
--- NOTE | 2022-04-09 12:33 | Consultation ---
History of Present Illness - Reason for Consult Consult date: 04/09/22 - History of Present Illness NEW TO OUR SERVICE This is a 42-year-old gentleman with history of HIV, unknown CD4 count, unknown viral load, who is not compliant with antiviral therapy for the past 6 months, who presents to the ER today with a complaint of weakness, malaise, fatigue, inability to walk or complete ADLs, generalized weakness, and scrotal pain. Pt at [facility] CT revealed soft tissue edema as well as punctate foci of soft tissue gas. He further reports that "my balls are busted." He is able to move 4 extremities. He endorses a gradual decline in functional status over the past 6 months. He used to receive his HIV care at [place]. He is not taking his antivirals. He denies headache, neck pain, chest pain, abdominal pain, shortness of breath. His symptoms are constant, gradually getting worse, testicular pain increases with palpation, and decreases with rest circ testes oxposed with 2-3cm ulcer--- mild drainage 16F oneill placed without difficulty---[place] urine A/p #Severe scrotal cellulitis, infected wound, exposed testicle ID CONSULT WOUND CARE REPEAT CT PELVIS IN AM Past History Past Medical History: HIV/AIDS, other (See HPI) Past Surgical History: No surgical history, Other (Reviewed) Social history: single. denies: smoking, alcohol abuse, prescription drug abuse Family history: hypertension Medications and Allergies Allergies Allergy/AdvReac Type Severity Reaction Status Date / Time No Known Allergies Allergy Verified 04/08/22 12:08 Active Meds: Active Medications Acetaminophen (Acetaminophen 325 Mg Tab) 650 mg PO Q4H PRN PRN Reason: Pain MILD(1-3)/Fever >100.5/CRUZ Albuterol (Albuterol 2.5 Mg/3 Ml Nebu) 2.5 mg IH Q4HRT PRN PRN Reason: Shortness Of Breath Doxycycline Hyclate (Doxycycline 100 Mg Cap) 100 mg PO BID [facility]; Protocol Last Admin: 04/09/22 12:28 Dose: 100 mg Hydromorphone HCl (Hydromorphone 0.5 Mg/0.5 Ml Inj) 0.25 mg IV Q4H PRN PRN Reason: Pain, Moderate (4-6) Hydromorphone HCl (Hydromorphone 0.5 Mg/0.5 Ml Inj) 0.5 mg IV Q8H PRN PRN Reason: Pain , Severe (7-10) Sodium Chloride (Nacl 0.9% 1000 Ml) 1,000 mls @ 125 mls/hr IV DIRECT AKIN Last Admin: 04/09/22 07:05 Dose: 125 mls/hr Ceftriaxone Sodium (Rocephin/Ns 2 Gm/100 Ml) 2 gm in 100 mls @ 200 mls/hr IV Q24HR AKIN; Protocol Last Admin: 04/09/22 12:10 Dose: 200 mls/hr Fluconazole (Diflucan) 200 mls @ 100 mls/hr IV Q24H AKIN; Protocol Vancomycin HCl (Vancomycin/Ns 1 Gm/250 Ml) 1 gm in 250 mls @ 166.667 mls/hr IV Q12H [facility] Last Admin: 04/09/22 12:11 Dose: 166.667 mls/hr Metronidazole (Metronidazole 500 Mg Tab) 500 mg PO Q8HR AKIN; Protocol Nystatin (Nystatin 500,000 Unit/5 Ml Oral Liqd) 500,000 unit PO QID AKIN Ondansetron HCl (Ondansetron 4 Mg/2 Ml Inj) 4 mg IV Q8H PRN PRN Reason: Nausea And Vomiting Oxycodone/Acetaminophen (Oxycodone /Acetaminophen 5-325mg Tab) 1 tab PO Q6H PRN PRN Reason: Pain, Moderate (4-6) Sodium Chloride (Sodium Chloride 0.9% 10 Ml Flush Syringe) 10 ml IV BID [facility] Last Admin: 04/09/22 09:02 Dose: 10 ml Sodium Chloride (Sodium Chloride 0.9% 10 Ml Flush Syringe) 10 ml IV PRN PRN PRN Reason: LINE FLUSH Last Admin: 04/09/22 07:03 Dose: 10 ml Trimethoprim/Sulfamethoxazole (Sulfamethoxazole/Trimethoprim 800/160mg Ds Tab) 1 each PO DAILY [facility]; Protocol Last Admin: 04/09/22 12:28 Dose: 1 each Exam - Constitutional Vitals: Temp Pulse Resp BP Pulse Ox 97.8 F 79 18 131/94 95 04/09/22 04:20 04/09/22 04:20 04/09/22 04:20 04/09/22 04:20 04/09/22 04:20 Results - Labs CBC & Chem 7: 09/02/22 02:15 04/09/22 02:15 Labs: Abnormal lab results 04/08/22 04/08/22 04/08/22 Range/Units 14:59 14:59 14:59 WBC (4.5-11.0) K/mm3 RBC 2.99 L (3.65-5.03) M/mm3 Hgb 8.2 L (11.8-15.2) gm/dl Hct 24.2 L (35.5-45.6) % MCV 81 L (84-94) fl MCH (28-32) pg MCHC (32-34) % RDW (13.2-15.2) % Seg Neuts % (Manual) 88.0 H (40.0-70.0) % Lymphocytes % (Manual) 7.0 L (13.4-35.0) % Monocytes % (Manual) (0.0-7.3) % Lymphocytes # (Manual) 0.5 L (1.2-5.4) K/mm3 PT (12.2-14.9) Sec. Sodium 135 L (137-145) mmol/L BUN 48 H (9-20) mg/dL Glucose 103 H (75-100) mg/dL Lactic Acid 2.40 H* (0.7-2.0) mmol/L Calcium (8.4-10.2) mg/dL Magnesium 2.60 H (1.7-2.3) mg/dL Alkaline Phosphatase 255 H (35-129) units/L Total Protein 10.4 H (6.3-8.2) g/dL Albumin 2.9 L (3.9-5) g/dL Urine WBC (Auto) (0.0-6.0) /HPF Syphilis IgG/IgM Ab (NonReactive) 04/08/22 04/08/22 04/08/22 Range/Units 14:59 14:59 Unknown WBC (4.5-11.0) K/mm3 RBC (3.65-5.03) M/mm3 Hgb (11.8-15.2) gm/dl Hct (35.5-45.6) % MCV (84-94) fl MCH (28-32) pg MCHC (32-34) % RDW (13.2-15.2) % Seg Neuts % (Manual) (40.0-70.0) % Lymphocytes % (Manual) (13.4-35.0) % Monocytes % (Manual) (0.0-7.3) % Lymphocytes # (Manual) (1.2-5.4) K/mm3 PT 15.8 H (12.2-14.9) Sec. Sodium (137-145) mmol/L BUN (9-20) mg/dL Glucose (75-100) mg/dL Lactic Acid (0.7-2.0) mmol/L Calcium (8.4-10.2) mg/dL Magnesium (1.7-2.3) mg/dL Alkaline Phosphatase (35-129) units/L Total Protein (6.3-8.2) g/dL Albumin (3.9-5) g/dL Urine WBC (Auto) 163.0 H (0.0-6.0) /HPF Syphilis IgG/IgM Ab Reactive A (NonReactive) 04/09/22 04/09/22 Range/Units 02:15 02:15 WBC 4.3 L (4.5-11.0) K/mm3 RBC 3.09 L (3.65-5.03) M/mm3 Hgb 8.1 L (11.8-15.2) gm/dl Hct 26.1 L (35.5-45.6) % MCV (84-94) fl MCH 26 L (28-32) pg MCHC 31 L (32-34) % RDW 15.4 H (13.2-15.2) % Seg Neuts % (Manual) (40.0-70.0) % Lymphocytes % (Manual) 12.0 L (13.4-35.0) % Monocytes % (Manual) 19.0 H (0.0-7.3) % Lymphocytes # (Manual) 0.5 L (1.2-5.4) K/mm3 PT (12.2-14.9) Sec. Sodium (137-145) mmol/L BUN 37 H (9-20) mg/dL Glucose (75-100) mg/dL Lactic Acid (0.7-2.0) mmol/L Calcium 8.0 L (8.4-10.2) mg/dL Magnesium (1.7-2.3) mg/dL Alkaline Phosphatase (35-129) units/L Total Protein (6.3-8.2) g/dL Albumin (3.9-5) g/dL Urine WBC (Auto) (0.0-6.0) /HPF Syphilis IgG/IgM Ab (NonReactive)
--- NOTE | 2022-04-09 13:36 | Electrocardiograph Report ---
[facility] Test Date: 2022-04-08 Test Time: 16:17:10 Pat Name: HALI LEMUS Department: Room: A3 1 Gender: M Dietitian Teaching: [address] : 1980 Requested By: DIANA LOBATO Order Number: [id number] Reading MD: Vick Benoit Measurements Intervals [place] Rate: 100 P: 85 NE: 143 QRS: 80 QRSD: 78 T: 75 QT: 392 QTc: 504 Interpretive Statements Sinus tachycardia Prolonged QT interval No previous ECG available for comparison Electronically Signed On 04-09-2022 13:36:14 EDT by Vick Benoit
[2022-04-09] MEDS: metroNIDAZOLE 500 MG TAB PO SCH ×2 (14:18→21:15)
[2022-04-09] MEDS: NYSTATIN 500,000 UNIT/5 ML ORAL LIQD PO SCH ×3 (14:18→21:34)
[2022-04-09] MEDS: FLUCONAZOLE 400 MG 200 ML IV SCH (14:30)
--- NOTE | 2022-04-09 18:01 | Event Note ---
Date: 04/09/22 PT FEELS BETTER - EATING COTA WITH CLEAR URINE REPEAT CT IN AM
[2022-04-10] MEDS: VANCOMYCIN/NS 1 GM/250 ML 1 GM/250 ML BAG IV SCH ×2 (00:47→12:40)
[2022-04-10] MEDS: metroNIDAZOLE 500 MG TAB PO SCH ×3 (06:31→22:38)
--- NOTE | 2022-04-10 08:26 | Cat Scan Report ---
CT ABDOMEN AND PELVIS WITHOUT CONTRAST INDICATION / CLINICAL INFORMATION: UTI. TECHNIQUE: Axial CT images were obtained through the abdomen and pelvis without IV contrast. All CT scans at this location are performed using CT dose reduction for ALARA by means of automated exposure control. COMPARISON: CT dated 04/08/2022 FINDINGS: Paucity of mesenteric fat and absence of contrast limits evaluation. LOWER CHEST: Multiple thin-walled cysts throughout both lung bases. LIVER: No significant abnormality. GALLBLADDER: No significant abnormality. BILE DUCTS: No significant abnormality. PANCREAS: No significant abnormality. SPLEEN: No significant abnormality. ADRENALS: No significant abnormality. RIGHT KIDNEY / URETER: No significant abnormality. LEFT KIDNEY / URETER: No significant abnormality. STOMACH / SMALL BOWEL: Stomach is normal. Similar mildly prominent fluid-filled small bowel. COLON: No significant abnormality. APPENDIX: Not visualized. PERITONEUM: Mesenteric congestion. No free air. No fluid collection. LYMPH NODES: No significant adenopathy. AORTA / ARTERIES: No significant abnormality. IVC / VEINS: No significant abnormality. URINARY BLADDER: Contracted around a Bright catheter. REPRODUCTIVE ORGANS: Similar locules of gas as well as skin thickening and fat stranding at the base of the penis. Gas and fluid collection along the right lateral aspect of the prostate gland is less w ell seen in the absence of contrast but persists and does not appear significantly changed, for examp le on image 176 series 3. ADDITIONAL FINDINGS: Anasarca. SKELETAL SYSTEM: No significant abnormality. IMPRESSION: 1. Similar skin thickening and subcutaneous gas at the base of the penis, which remains concerning fo r soft tissue infection. Similar fluid collection or along the right lateral base of the prostate gla nd with small locules of gas, which remains concerning for abscess. 2. Unchanged dilated loops of fluid-filled small bowel, which can be seen with enteritis. 3. Mesenteric edema and anasarca suggest hypervolemia/third spacing. Signer Name: Martín Khanna MD Signed: 04/10/2022 8:22 AM Workstation Name: [email or web address]
--- NOTE | 2022-04-10 09:39 | Progress Note ---
History Interval history: 42 YO Male with HIV Disease/AIDS with Unknown Viral load, Medication Noncompliance, Malnutrition presents ED for evaluation of generalized weakness over the past 6 months with malaise, fatigue and 2 week scrotal pain. Patient found to have sepsis complicated by scrotal cellulitis, malnutrition, HIV disease, as well as urinary tract infection, and disseminated syphilis. 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 Continue IV antibiotics and await ID consultation. Follow-up blood and urine cultures. Await urology consultation. CT scan reveals diffuse soft t issue edema about the perineum extending to the base of the penis and scrotum. There are several associated punctate foci of soft tissue gas. Patient has persistent gas and fluid collection of the right lateral to the prostate which measures 2.6 x 1.1 cm. Bladder is also distended. 04/10/2022. Urology reports patient with exposed testicle and 2-3 cm ulcer with mild drainage. Continue IV antibiotics for sepsis/scrotal cellulitis. ID recommends ceftriaxone, Flagyl, doxycycline and IV vancomycin. Patient will also be treated with IV fluconazole and p.o. nystatin. Follow-up wound culture. Follow-up HIV RNA PCR and CD4 count. P.o. Bactrim for prophylaxis. Hospitalist Physical - Constitutional Vitals: Temp Pulse Resp BP Pulse Ox 98.0 F 85 16 135/97 100 04/10/22 06:37 04/09/22 21:24 04/09/22 21:24 04/10/22 06:37 04/10/22 08:43 General appearance: Present: mild distress, cachectic Results - Labs CBC & Chem 7: 04/09/22 02:15 04/09/22 02:15 Labs: Laboratory Last Values WBC 4.3 K/mm3 (4.5-11.0) L 04/09/22 02:15 RBC 3.09 M/mm3 (3.65-5.03) L 04/09/22 02:15 Hgb 8.1 gm/dl (11.8-15.2) L 04/09/22 02:15 Hct 26.1 % (35.5-45.6) L 04/09/22 02:15 MCV 84 fl (84-94) 04/09/22 02:15 MCH 26 pg (28-32) L 04/09/22 02:15 MCHC 31 % (32-34) L 04/09/22 02:15 RDW 15.4 % (13.2-15.2) H 04/09/22 02:15 Plt Count 328 K/mm3 (140-440) 04/09/22 02:15 [place] % (Auto) Organic Lab Worker 04/09/22 02:15 Add Manual Diff Complete 04/09/22 02:15 Total Counted 100 04/09/22 02:15 Seg Neuts % (Manual) 69.0 % (40.0-70.0) 04/09/22 02:15 Band Neutrophils % 0 % 04/09/22 02:15 Lymphocytes % (Manual) 12.0 % (13.4-35.0) L 04/09/22 02:15 Reactive Lymphs % (Man) 0 % 04/09/22 02:15 Monocytes % (Manual) 19.0 % (0.0-7.3) H 04/09/22 02:15 Eosinophils % (Manual) 0 % (0.0-4.3) 04/09/22 02:15 Basophils % (Manual) 0 % (0.0-1.8) 04/09/22 02:15 Metamyelocytes % 0 % 04/09/22 02:15 Myelocytes % 0 % 04/09/22 02:15 Promyelocytes % 0 % 04/09/22 02:15 Blast Cells % 0 % 04/09/22 02:15 Nucleated RBC % Not Reportable 04/09/22 02:15 Seg Neutrophils # Man 3.0 K/mm3 (1.8-7.7) 04/09/22 02:15 Band Neutrophils # 0.0 K/mm3 04/09/22 02:15 Lymphocytes # (Manual) 0.5 K/mm3 (1.2-5.4) L 04/09/22 02:15 Abs React Lymphs (Man) 0.0 K/mm3 04/09/22 02:15 Monocytes # (Manual) 0.8 K/mm3 (0.0-0.8) 04/09/22 02:15 Eosinophils # (Manual) 0.0 K/mm3 (0.0-0.4) 04/09/22 02:15 Basophils # (Manual) 0.0 K/mm3 (0.0-0.1) 04/09/22 02:15 Metamyelocytes # 0.0 K/mm3 04/09/22 02:15 Myelocytes # 0.0 K/mm3 04/09/22 02:15 Promyelocytes # 0.0 K/mm3 04/09/22 02:15 Blast Cells # 0.0 K/mm3 04/09/22 02:15 WBC Morphology Not Reportable 04/09/22 02:15 Hypersegmented Neuts Not Reportable 04/09/22 02:15 Hyposegmented Neuts Not Reportable 04/09/22 02:15 Hypogranular Neuts Not Reportable 04/09/22 02:15 Smudge Cells Not Reportable 04/09/22 02:15 Toxic Granulation Not Reportable 04/09/22 02:15 Toxic Vacuolation Not Reportable 04/09/22 02:15 Dohle Bodies Not Reportable 04/09/22 02:15 Pelger-Huet Anomaly Not Reportable 04/09/22 02:15 Rylee Rods Not Reportable 04/09/22 02:15 Platelet Estimate Consistent w auto 04/09/22 02:15 Clumped Platelets Not Reportable 04/09/22 02:15 Plt Clumps, EDTA Not Reportable 04/09/22 02:15 Large Platelets Not Reportable 04/09/22 02:15 Giant Platelets Not Reportable 04/09/22 02:15 Platelet Satelliting Not Reportable 04/09/22 02:15 Plt Morphology Comment Not Reportable 04/09/22 02:15 RBC Morphology Not Reportable 04/09/22 02:15 Dimorphic RBCs Not Reportable 04/09/22 02:15 Polychromasia Not Reportable 04/09/22 02:15 Hypochromasia Few 04/09/22 02:15 Poikilocytosis Not Reportable 04/09/22 02:15 Anisocytosis Not Reportable 04/09/22 02:15 Microcytosis Not Reportable 04/09/22 02:15 Macrocytosis Not Reportable 04/09/22 02:15 Spherocytes Not Reportable 04/09/22 02:15 Pappenheimer Bodies Not Reportable 04/09/22 02:15 Sickle Cells Not Reportable 04/09/22 02:15 Target Cells Not Reportable 04/09/22 02:15 Tear Drop Cells Not Reportable 04/09/22 02:15 Ovalocytes Not Reportable 04/09/22 02:15 Helmet Cells Not Reportable 04/09/22 02:15 [place] Bodies Not Reportable 04/09/22 02:15 [place] Rings Not Reportable 04/09/22 02:15 Quoc Cells Not Reportable 04/09/22 02:15 Bite Cells Not Reportable 04/09/22 02:15 Crenated Cell Not Reportable 04/09/22 02:15 Elliptocytes Not Reportable 04/09/22 02:15 Acanthocytes (Spur) Not Reportable 04/09/22 02:15 Rouleaux Not Reportable 04/09/22 02:15 Hemoglobin C Crystals Not Reportable 04/09/22 02:15 Schistocytes Not Reportable 04/09/22 02:15 Malaria parasites Not Reportable 04/09/22 02:15 Gabo Bodies Not Reportable 04/09/22 02:15 Hem Pathologist Commnt No 04/09/22 02:15 PT 15.8 Sec. (12.2-14.9) H 04/08/22 14:59 INR 1.13 (0.87-1.13) 04/08/22 14:59 Sodium 140 mmol/L (137-145) 04/09/22 02:15 Potassium 4.9 mmol/L (3.6-5.0) 04/09/22 02:15 Chloride 105.0 mmol/L (98-107) 04/09/22 02:15 Carbon Dioxide 22 mmol/L (22-30) 04/09/22 02:15 Anion Gap 18 mmol/L 04/09/22 02:15 BUN 37 mg/dL (9-20) H 04/09/22 02:15 Creatinine 0.9 mg/dL (0.8-1.3) 04/09/22 02:15 Estimated GFR > 60 ml/min 04/09/22 02:15 BUN/Creatinine Ratio 41 % 04/09/22 02:15 Glucose 82 mg/dL (75-100) 04/09/22 02:15 Lactic Acid 1.10 mmol/L (0.7-2.0) 04/09/22 07:25 Calcium 8.0 mg/dL (8.4-10.2) L 04/09/22 02:15 Magnesium 2.60 mg/dL (1.7-2.3) H 04/08/22 14:59 Total Bilirubin 0.30 mg/dL (0.1-1.2) 04/08/22 14:59 AST 27 units/L (5-40) 04/08/22 14:59 ALT 10 units/L (7-56) 04/08/22 14:59 Alkaline Phosphatase 255 units/L (35-129) H 04/08/22 14:59 Total Creatine Kinase 74 units/L (55-170) 04/08/22 14:59 Total Protein 10.4 g/dL (6.3-8.2) H 04/08/22 14:59 Albumin 2.9 g/dL (3.9-5) L 04/08/22 14:59 Albumin/Globulin Ratio 0.4 % 04/08/22 14:59 TSH 2.390 mlU/mL (0.270-4.200) 04/08/22 14:59 Free T4 0.99 ng/dL (0.76-1.46) 04/08/22 14:59 Urine Color Straw (Yellow) 04/08/22 Unknown Urine Turbidity Cloudy (Clear) 04/08/22 Unknown Specific [place] (Man) 1.025 (1.003-1.030) 04/08/22 Unknown Ur Protein (Man) 2+ mg/dL (Negative) 04/08/22 Unknown Ur Ketones (Man) 5 (Negative) 04/08/22 Unknown Ur Nitrite (Man) Positive (Negative) 04/08/22 Unknown Ur Reducing Substances Not Reportable 04/08/22 Unknown Urine Bilirubin (Man) Negative (Negative) 04/08/22 Unknown Urine Ictotest Not Reportable 04/08/22 Unknown Leukocyte Esterase (Man) Moderate (Negative) 04/08/22 Unknown Urine WBC (Auto) 163.0 /HPF (0.0-6.0) H 04/08/22 Unknown Urine RBC (Auto) 10.0 /HPF (0.0-6.0) 04/08/22 Unknown Urine Bacteria (Auto) 4+ /HPF (Negative) 04/08/22 Unknown Urine RBC (Manual) 3+ (Negative) 09/01/22 Unknown Urine Mucus Few /HPF 04/08/22 Unknown Syphilis IgG/IgM Ab Reactive (NonReactive) A 04/08/22 14:59 RPR Titer 1:800 (1:1-1:2) 04/08/22 14:59 Coronavirus (PCR) Negative (Negative) 04/09/22 09:20 Blood Type B POSITIVE 04/08/22 23:55 Antibody Screen Negative 04/08/22 23:55 Microbiology: Microbiology 04/08/22 14:59 Peripheral/Venous Blood Culture - Preliminary NO GROWTH AFTER 24 HOURS 04/08/22 14:59 Peripheral/Venous Blood Culture - Preliminary NO GROWTH AFTER 24 HOURS Bright/IV: Voiding Method Urinal Active Medications - Current Medications Current Medications: Generic Name Dose Route Start Last Admin Trade Name Freq PRN Reason Stop Dose Admin Acetaminophen 650 mg 04/08/22 19:52 Acetaminophen 325 Mg Tab PO Q4H PRN Pain MILD(1-3)/Fever >100.5/CRUZ Albuterol 2.5 mg 04/08/22 19:52 Albuterol 2.5 Mg/3 Ml Nebu IH Q4HRT PRN Shortness Of Breath Doxycycline Hyclate 100 mg 04/09/22 12:00 04/09/22 21:15 Doxycycline 100 Mg Cap PO 100 mg BID AKIN Administration Protocol Hydromorphone HCl 0.25 mg 04/08/22 19:52 Hydromorphone 0.5 Mg/0.5 Ml Inj IV Q4H PRN Pain, Moderate (4-6) Hydromorphone HCl 0.5 mg 04/08/22 19:52 Hydromorphone 0.5 Mg/0.5 Ml Inj IV Q8H PRN Pain , Severe (7-10) Sodium Chloride 1,000 mls @ 125 mls/hr 04/08/22 20:00 04/09/22 21:36 Nacl 0.9% 1000 Ml IV 125 mls/hr DIRECT AKIN Administration Ceftriaxone Sodium 2 gm in 100 mls @ 200 mls/hr 04/09/22 12:00 04/09/22 12:10 Rocephin/Ns 2 Gm/100 Ml IV 200 mls/hr Q24HR AKIN Administration Protocol Fluconazole 200 mls @ 100 mls/hr 04/09/22 14:00 04/09/22 14:30 Diflucan IV 100 mls/hr Q24H AKIN Administration Protocol Vancomycin HCl 1 gm in 250 mls @ 166.667 mls/hr 04/09/22 12:00 04/10/22 00:47 Vancomycin/Ns 1 Gm/250 Ml IV 166.667 mls/hr Q12H AKIN Administration Metronidazole 500 mg 04/09/22 14:00 04/10/22 06:31 Metronidazole 500 Mg Tab PO 500 mg Q8HR AKIN Administration Protocol Nystatin 500,000 unit 04/09/22 14:00 04/09/22 21:34 Nystatin 500,000 Unit/5 Ml Oral Liqd PO 500,000 unit QID AKIN Administration Ondansetron HCl 4 mg 04/08/22 19:52 Ondansetron 4 Mg/2 Ml Inj IV Q8H PRN Nausea And Vomiting Oxycodone/Acetaminophen 1 tab 04/08/22 19:52 Oxycodone /Acetaminophen 5-325mg Tab PO Q6H PRN Pain, Moderate (4-6) Sodium Chloride 10 ml 04/08/22 22:00 04/09/22 21:35 Sodium Chloride 0.9% 10 Ml Flush Syringe IV 10 ml BID AKIN Administration Sodium Chloride 10 ml 04/08/22 19:52 04/09/22 07:03 Sodium Chloride 0.9% 10 Ml Flush Syringe IV 10 ml PRN PRN Administration LINE FLUSH Trimethoprim/Sulfamethoxazole 1 each 04/09/22 12:00 04/09/22 12:28 Sulfamethoxazole/Trimethoprim 800/160mg Ds Tab PO 1 each DAILY AKIN Administration Protocol Nutrition/Malnutrition Assess - Dietary Evaluation Nutrition/Malnutrition Findings: Nutrition Notes Start: 04/09/22 15:34 Freq: Status: Active Protocol: Document 04/09/22 15:34 SUKHI (Rec: 04/09/22 15:41 SUKHI [id number]) Nutrition Notes Need for Assessment generated from: Low BMI Initial or Follow up Assessment Current Diagnosis Sepsis Other Pertinent Diagnosis Severe scrotal cellulitis, UTI Current Diet Regular Labs/Tests Reviewed Pertinent Medications Reviewed Height 5 ft 10 in Weight 54.431 kg [place] Body Weight (kg) 75.45 BMI 17.2 Intake Prior to Admission Poor Weight Status Underweight Subjective/Other Information Pt screened for LOS. Unable to speak with pt today; pt on isolation precautions. Pt with hx of medication non- compliance; c/o generalized weakness and malaise. 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 No Is Patient Ambulatory and/or Out of Bed No REE-([facility]-confined to bed) 1755.864 Kcal/Kg value to use for calculation 40 Approximate Energy Requirements Using 2177 kcal/Kg Calculation Used for Recommendations Kcal/kg Additional Notes Pro needs 1.2-1.5g/k-82g/ day Fluid needs 1ml/kcal Nutrition Intervention Change Diet Order: Continue current diet order Add Supplement/Snack (indicate name/kcal Ensure High Protein TID /protein ) Provides kCal: 480 Provides Protein (gm) 48 Goal #1 PO intake of meals plus ONS to meet 100% energy and pro needs Goal #2 Wt maintenance and/or gain Anticipated Discharge Needs: ONS 1-2 times per day for wt maintenance; high-calorie/high -protein diet Follow-Up By: 04/13/22 Additional Comments F/U: intakes (meals/ONS), wt loss assessment (via phone if necessary)
[2022-04-10] MEDS: NYSTATIN 500,000 UNIT/5 ML ORAL LIQD PO SCH ×4 (10:25→22:38)
[2022-04-10] MEDS: SULFAMETHOXAZOLE/TRIMETHOPRIM 800/160MG DS TAB PO SCH (10:25)
[2022-04-10] MEDS: cefTRIAXone/NS 2 GM/100 ML 2 GM/100 ML BAG IV SCH (10:25)
[2022-04-10] MEDS: DOXYCYCLINE 100 MG CAP PO SCH ×2 (10:25→22:38)
[2022-04-10] MEDS: FLUCONAZOLE 400 MG 200 ML IV SCH (16:07)
--- NOTE | 2022-04-10 16:09 | Progress Note ---
Subjective Date of service: 04/10/22 Interval history: NEW TO OUR SERVICE This is a 42-year-old gentleman with history of HIV, unknown CD4 count, unknown viral load, who is not compliant with antiviral therapy for the past 6 months, who presents to the ER today with a complaint of weakness, malaise, fatigue, inability to walk or complete ADLs, generalized weakness, and scrotal pain. Pt at [facility] CT revealed soft tissue edema as well as punctate foci of soft tissue gas. He further reports that "my balls are busted." He is able to move 4 extremities. He endorses a gradual decline in functional status over the past 6 months. He used to receive his HIV care at [place]. He is not taking his antivirals. He denies headache, neck pain, chest pain, abdominal pain, shortness of breath. pt feels better circ testes exposed with 2-3cm ulcer--- mild drainage 16F oneill --[place] urine REPEAT CT -unchanged A/p scrotal cellulitis, infected wound, exposed testicle ID yonis appreciated WOUND alf with oneill Objective - Constitutional Vitals: Vital Signs - 12hr 04/10/22 04/10/22 04/10/22 06:37 08:43 11:58 Temperature 98.0 F 97.9 F Pulse Rate 96 H Respiratory 18 Rate Blood Pressure 135/97 130/94 O2 Sat by Pulse 100 99 Oximetry - Labs CBC & Chem 7: 04/09/22 02:15 04/09/22 02:15 Medications & Allergies - Medications Allergies/Adverse Reactions: Allergies No Known Allergies Allergy (Verified 04/08/22 12:08) Active Medications: Generic Name Dose Route Start Last Admin Trade Name Freq PRN Reason Stop Dose Admin Acetaminophen 650 mg 04/08/22 19:52 Acetaminophen 325 Mg Tab PO Q4H PRN Pain MILD(1-3)/Fever >100.5/CRUZ Albuterol 2.5 mg 04/08/22 19:52 Albuterol 2.5 Mg/3 Ml Nebu IH Q4HRT PRN Shortness Of Breath Doxycycline Hyclate 100 mg 04/09/22 12:00 04/10/22 10:25 Doxycycline 100 Mg Cap PO 100 mg BID AKIN Administration Protocol Hydromorphone HCl 0.25 mg 04/08/22 19:52 Hydromorphone 0.5 Mg/0.5 Ml Inj IV Q4H PRN Pain, Moderate (4-6) Hydromorphone HCl 0.5 mg 04/08/22 19:52 Hydromorphone 0.5 Mg/0.5 Ml Inj IV Q8H PRN Pain , Severe (7-10) Sodium Chloride 1,000 mls @ 125 mls/hr 04/08/22 20:00 04/09/22 21:36 Nacl 0.9% 1000 Ml IV 125 mls/hr DIRECT AKIN Administration Ceftriaxone Sodium 2 gm in 100 mls @ 200 mls/hr 04/09/22 12:00 04/10/22 10:25 Rocephin/Ns 2 Gm/100 Ml IV 200 mls/hr Q24HR AKIN Administration Protocol Fluconazole 200 mls @ 100 mls/hr 04/09/22 14:00 04/09/22 14:30 Diflucan IV 100 mls/hr Q24H AKIN Administration Protocol Vancomycin HCl 1 gm in 250 mls @ 166.667 mls/hr 04/09/22 12:00 04/10/22 12:40 Vancomycin/Ns 1 Gm/250 Ml IV 166.667 mls/hr Q12H AKIN Administration Metronidazole 500 mg 04/09/22 14:00 04/10/22 13:44 Metronidazole 500 Mg Tab PO 500 mg Q8HR AKIN Administration Protocol Nystatin 500,000 unit 04/09/22 14:00 04/10/22 13:44 Nystatin 500,000 Unit/5 Ml Oral Liqd PO 500,000 unit QID AKIN Administration Ondansetron HCl 4 mg 04/08/22 19:52 Ondansetron 4 Mg/2 Ml Inj IV Q8H PRN Nausea And Vomiting Oxycodone/Acetaminophen 1 tab 04/08/22 19:52 Oxycodone /Acetaminophen 5-325mg Tab PO Q6H PRN Pain, Moderate (4-6) Sodium Chloride 10 ml 04/08/22 22:00 04/10/22 10:26 Sodium Chloride 0.9% 10 Ml Flush Syringe IV 10 ml BID AKIN Administration Sodium Chloride 10 ml 04/08/22 19:52 04/09/22 07:03 Sodium Chloride 0.9% 10 Ml Flush Syringe IV 10 ml PRN PRN Administration LINE FLUSH Trimethoprim/Sulfamethoxazole 1 each 04/09/22 12:00 04/10/22 10:25 Sulfamethoxazole/Trimethoprim 800/160mg Ds Tab PO 1 each DAILY AKIN Administration Protocol
[2022-04-10] MEDS: SODIUM CHLORIDE 0.9% 1000 ML 1,000 ML IV SCH (17:28)
[2022-04-11] MEDS: VANCOMYCIN/NS 1 GM/250 ML 1 GM/250 ML BAG IV SCH ×2 (00:19→14:33)
[2022-04-11 05:11] LABS: Hematocrit 24.5 % (35.5-45.6); Mean Corpuscular HGB Conc 32 % (32-34); Mean Corpuscular Volume 81 fl (84-94); Platelet Count 291 K/mm3 (140-440); Red Blood Count 3.02 M/mm3 (3.65-5.03); Red Cell Distribution Width 15.6 % (13.2-15.2)
[2022-04-11 05:23] LABS: Blood Urea Nitrogen 12 mg/dL (9-20); Calcium 7.5 mg/dL (8.4-10.2); Hemolysis Index 1
[2022-04-11 05:24] LABS: BUN/Creatinine Ratio 20
[2022-04-11] MEDS: metroNIDAZOLE 500 MG TAB PO SCH ×3 (06:08→21:38)
[2022-04-11 06:29] LABS: Anisocytosis 1+; Basophils % (Manual) 0 % (0.0-1.8); Platelet Estimate Consistent w Auto; Total Cells Counted 100
[2022-04-11] MEDS: SODIUM CHLORIDE 0.9% 1000 ML 1,000 ML IV SCH (07:36)
--- NOTE | 2022-04-11 10:33 | Progress Note ---
History Interval history: 42 YO Male with HIV Disease/AIDS with Unknown Viral load, Medication Noncompliance, Malnutrition presents ED for evaluation of generalized weakness over the past 6 months with malaise, fatigue and 2 week scrotal pain. Patient found to have sepsis complicated by scrotal cellulitis, malnutrition, HIV disease, as well as urinary tract infection, and disseminated syphilis. 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 Continue IV antibiotics and await ID consultation. Follow-up blood and urine cultures. Await urology consultation. CT scan reveals diffuse soft t issue edema about the perineum extending to the base of the penis and scrotum. There are several associated punctate foci of soft tissue gas. Patient has persistent gas and fluid collection of the right lateral to the prostate which measures 2.6 x 1.1 cm. Bladder is also distended. 04/10/2022. Urology reports patient with exposed testicle and 2-3 cm ulcer with mild drainage. Continue IV antibiotics for sepsis/scrotal cellulitis. ID recommends ceftriaxone, Flagyl, doxycycline and IV vancomycin. Patient will also be treated with IV fluconazole and p.o. nystatin. Follow-up wound culture. Follow-up HIV RNA PCR and CD4 count. P.o. Bactrim for prophylaxis. 04/11/2022. Continue antibiotics and antifungals per ID recommendations. Continue wound care for scrotal region. Urology reports continue wound care and home with Bright. Await ID recommendations with duration of antibiotics. Blood cultures negative Hospitalist Physical - Constitutional Vitals: Temp Pulse Resp BP Pulse Ox 98.5 F 79 20 140/93 98 04/10/22 17:23 04/11/22 05:37 04/11/22 05:37 04/11/22 05:37 04/11/22 05:37 General appearance: Present: mild distress, cachectic Results - Labs CBC & Chem 7: 04/11/22 04:43 04/11/22 04:43 Labs: Laboratory Last Values WBC 3.2 K/mm3 (4.5-11.0) L 04/11/22 04:43 RBC 3.02 M/mm3 (3.65-5.03) L 04/11/22 04:43 Hgb 8.0 gm/dl (11.8-15.2) L 04/11/22 04:43 Hct 24.5 % (35.5-45.6) L 04/11/22 04:43 MCV 81 fl (84-94) L 04/11/22 04:43 MCH 26 pg (28-32) L 04/11/22 04:43 MCHC 32 % (32-34) 04/11/22 04:43 RDW 15.6 % (13.2-15.2) H 04/11/22 04:43 Plt Count 291 K/mm3 (140-440) 04/11/22 04:43 [place] % (Auto) Solid Waste Engineer 04/11/22 04:43 Add Manual Diff Complete 04/11/22 04:43 Total Counted 100 04/11/22 04:43 Seg Neuts % (Manual) 77.0 % (40.0-70.0) H 04/11/22 04:43 Band Neutrophils % 1.0 % 04/11/22 04:43 Lymphocytes % (Manual) 10.0 % (13.4-35.0) L 04/11/22 04:43 Reactive Lymphs % (Man) 0 % 04/11/22 04:43 Monocytes % (Manual) 10.0 % (0.0-7.3) H 04/11/22 04:43 Eosinophils % (Manual) 2.0 % (0.0-4.3) 04/11/22 04:43 Basophils % (Manual) 0 % (0.0-1.8) 04/11/22 04:43 Metamyelocytes % 0 % 04/11/22 04:43 Myelocytes % 0 % 04/11/22 04:43 Promyelocytes % 0 % 04/11/22 04:43 Blast Cells % 0 % 04/11/22 04:43 Nucleated RBC % Not Reportable 04/11/22 04:43 Seg Neutrophils # Man 2.5 K/mm3 (1.8-7.7) 04/11/22 04:43 Band Neutrophils # 0.0 K/mm3 04/11/22 04:43 Lymphocytes # (Manual) 0.3 K/mm3 (1.2-5.4) L 04/11/22 04:43 Abs React Lymphs (Man) 0.0 K/mm3 04/11/22 04:43 Monocytes # (Manual) 0.3 K/mm3 (0.0-0.8) 04/11/22 04:43 Eosinophils # (Manual) 0.1 K/mm3 (0.0-0.4) 04/11/22 04:43 Basophils # (Manual) 0.0 K/mm3 (0.0-0.1) 04/11/22 04:43 Metamyelocytes # 0.0 K/mm3 04/11/22 04:43 Myelocytes # 0.0 K/mm3 04/11/22 04:43 Promyelocytes # 0.0 K/mm3 04/11/22 04:43 Blast Cells # 0.0 K/mm3 04/11/22 04:43 WBC Morphology Not Reportable 04/11/22 04:43 Hypersegmented Neuts Not Reportable 04/11/22 04:43 Hyposegmented Neuts Not Reportable 04/11/22 04:43 Hypogranular Neuts Not Reportable 04/11/22 04:43 Smudge Cells Not Reportable 04/11/22 04:43 Toxic Granulation Not Reportable 04/11/22 04:43 Toxic Vacuolation Not Reportable 04/11/22 04:43 Dohle Bodies Not Reportable 04/11/22 04:43 Pelger-Huet Anomaly Not Reportable 04/11/22 04:43 Rylee Rods Not Reportable 04/11/22 04:43 Platelet Estimate Consistent w auto 04/11/22 04:43 Clumped Platelets Not Reportable 04/11/22 04:43 Plt Clumps, EDTA Not Reportable 04/11/22 04:43 Large Platelets Not Reportable 04/11/22 04:43 Giant Platelets Not Reportable 04/11/22 04:43 Platelet Satelliting Not Reportable 04/11/22 04:43 Plt Morphology Comment Not Reportable 04/11/22 04:43 RBC Morphology Not Reportable 04/11/22 04:43 Dimorphic RBCs Not Reportable 04/11/22 04:43 Polychromasia Not Reportable 04/11/22 04:43 Hypochromasia Not Reportable 04/11/22 04:43 Poikilocytosis Not Reportable 04/11/22 04:43 Anisocytosis 1+ 04/11/22 04:43 Microcytosis Not Reportable 04/11/22 04:43 Macrocytosis Not Reportable 04/11/22 04:43 Spherocytes Not Reportable 04/11/22 04:43 Pappenheimer Bodies Not Reportable 04/11/22 04:43 Sickle Cells Not Reportable 04/11/22 04:43 Target Cells Not Reportable 04/11/22 04:43 Tear Drop Cells Not Reportable 04/11/22 04:43 Ovalocytes Not Reportable 04/11/22 04:43 Helmet Cells Not Reportable 04/11/22 04:43 [place] Bodies Not Reportable 04/11/22 04:43 [place] Rings Not Reportable 04/11/22 04:43 [place] Cells Not Reportable 04/11/22 04:43 Bite Cells Not Reportable 04/11/22 04:43 Crenated Cell Not Reportable 04/11/22 04:43 Elliptocytes Not Reportable 04/11/22 04:43 Acanthocytes (Spur) Not Reportable 04/11/22 04:43 Rouleaux Not Reportable 04/11/22 04:43 Hemoglobin C Crystals Not Reportable 04/11/22 04:43 Schistocytes Not Reportable 04/11/22 04:43 Malaria parasites Not Reportable 04/11/22 04:43 Gabo Bodies Not Reportable 04/11/22 04:43 Hem Pathologist Commnt No 04/11/22 04:43 PT 15.8 Sec. (12.2-14.9) H 04/08/22 14:59 INR 1.13 (0.87-1.13) 04/08/22 14:59 Sodium 134 mmol/L (137-145) L 04/11/22 04:43 Potassium 3.7 mmol/L (3.6-5.0) D 04/11/22 04:43 Chloride 102.5 mmol/L (98-107) 04/11/22 04:43 Carbon Dioxide 23 mmol/L (22-30) 04/11/22 04:43 Anion Gap 12 mmol/L 04/11/22 04:43 BUN 12 mg/dL (9-20) 04/11/22 04:43 Creatinine 0.6 mg/dL (0.8-1.3) L 04/11/22 04:43 Estimated GFR > 60 ml/min 04/11/22 04:43 BUN/Creatinine Ratio 20 % 04/11/22 04:43 Glucose 94 mg/dL (75-100) 04/11/22 04:43 Lactic Acid 1.10 mmol/L (0.7-2.0) 04/09/22 07:25 Calcium 7.5 mg/dL (8.4-10.2) L 04/11/22 04:43 Magnesium 2.60 mg/dL (1.7-2.3) H 04/08/22 14:59 Total Bilirubin 0.30 mg/dL (0.1-1.2) 04/08/22 14:59 AST 27 units/L (5-40) 04/08/22 14:59 ALT 10 units/L (7-56) 04/08/22 14:59 Alkaline Phosphatase 255 units/L (35-129) H 04/08/22 14:59 Total Creatine Kinase 74 units/L (55-170) 04/08/22 14:59 Total Protein 10.4 g/dL (6.3-8.2) H 04/08/22 14:59 Albumin 2.9 g/dL (3.9-5) L 04/08/22 14:59 Albumin/Globulin Ratio 0.4 % 04/08/22 14:59 TSH 2.390 mlU/mL (0.270-4.200) 04/08/22 14:59 Free T4 0.99 ng/dL (0.76-1.46) 04/08/22 14:59 Urine Color Straw (Yellow) 04/08/22 Unknown Urine Turbidity Cloudy (Clear) 04/08/22 Unknown Specific [place] (Man) 1.025 (1.003-1.030) 04/08/22 Unknown Ur Protein (Man) 2+ mg/dL (Negative) 04/08/22 Unknown Ur Ketones (Man) 5 (Negative) 04/08/22 Unknown Ur Nitrite (Man) Positive (Negative) 04/08/22 Unknown Ur Reducing Substances Not Reportable 04/08/22 Unknown Urine Bilirubin (Man) Negative (Negative) 04/08/22 Unknown Urine Ictotest Not Reportable 04/08/22 Unknown Leukocyte Esterase (Man) Moderate (Negative) 04/08/22 Unknown Urine WBC (Auto) 163.0 /HPF (0.0-6.0) H 04/08/22 Unknown Urine RBC (Auto) 10.0 /HPF (0.0-6.0) 04/08/22 Unknown Urine Bacteria (Auto) 4+ /HPF (Negative) 04/08/22 Unknown Urine RBC (Manual) 3+ (Negative) 04/08/22 Unknown Urine Mucus Few /HPF 04/08/22 Unknown Syphilis IgG/IgM Ab Reactive (NonReactive) A 04/08/22 14:59 RPR Titer 1:800 (1:1-1:2) 04/08/22 14:59 Coronavirus (PCR) Negative (Negative) 04/09/22 09:20 Blood Type B POSITIVE 04/08/22 23:55 Antibody Screen Negative 04/08/22 23:55 Microbiology: Microbiology 04/08/22 14:59 Peripheral/Venous Blood Culture - Preliminary NO GROWTH AFTER 48 HOURS 04/08/22 14:59 Peripheral/Venous Blood Culture - Preliminary NO GROWTH AFTER 48 HOURS Bright/IV: Voiding Method Indwelling Catheter Active Medications - Current Medications Current Medications: Generic Name Dose Route Start Last Admin Trade Name Freq PRN Reason Stop Dose Admin Acetaminophen 650 mg 04/08/22 19:52 Acetaminophen 325 Mg Tab PO Q4H PRN Pain MILD(1-3)/Fever >100.5/CRUZ Albuterol 2.5 mg 04/08/22 19:52 Albuterol 2.5 Mg/3 Ml Nebu IH Q4HRT PRN Shortness Of Breath Doxycycline Hyclate 100 mg 04/09/22 12:00 04/10/22 22:38 Doxycycline 100 Mg Cap PO 100 mg BID AKIN Administration Protocol Hydromorphone HCl 0.25 mg 04/08/22 19:52 Hydromorphone 0.5 Mg/0.5 Ml Inj IV Q4H PRN Pain, Moderate (4-6) Hydromorphone HCl 0.5 mg 04/08/22 19:52 Hydromorphone 0.5 Mg/0.5 Ml Inj IV Q8H PRN Pain , Severe (7-10) Sodium Chloride 1,000 mls @ 125 mls/hr 04/08/22 20:00 04/11/22 07:36 Nacl 0.9% 1000 Ml IV 125 mls/hr DIRECT AKIN Administration Ceftriaxone Sodium 2 gm in 100 mls @ 200 mls/hr 04/09/22 12:00 04/10/22 10:25 Rocephin/Ns 2 Gm/100 Ml IV 200 mls/hr Q24HR AKIN Administration Protocol Fluconazole 200 mls @ 100 mls/hr 04/09/22 14:00 04/10/22 16:07 Diflucan IV 100 mls/hr Q24H AKIN Administration Protocol Vancomycin HCl 1 gm in 250 mls @ 166.667 mls/hr 04/09/22 12:00 04/11/22 00:19 Vancomycin/Ns 1 Gm/250 Ml IV 166.667 mls/hr Q12H AKIN Administration Metronidazole 500 mg 04/09/22 14:00 04/11/22 06:08 Metronidazole 500 Mg Tab PO 500 mg Q8HR AKIN Administration Protocol Nystatin 500,000 unit 04/09/22 14:00 04/10/22 22:38 Nystatin 500,000 Unit/5 Ml Oral Liqd PO 500,000 unit QID AKNI Administration Ondansetron HCl 4 mg 04/08/22 19:52 Ondansetron 4 Mg/2 Ml Inj IV Q8H PRN Nausea And Vomiting Oxycodone/Acetaminophen 1 tab 04/08/22 19:52 Oxycodone /Acetaminophen 5-325mg Tab PO Q6H PRN Pain, Moderate (4-6) Sodium Chloride 10 ml 04/08/22 22:00 04/10/22 22:39 Sodium Chloride 0.9% 10 Ml Flush Syringe IV 10 ml BID AKIN Administration Sodium Chloride 10 ml 04/08/22 19:52 04/09/22 07:03 Sodium Chloride 0.9% 10 Ml Flush Syringe IV 10 ml PRN PRN Administration LINE FLUSH Trimethoprim/Sulfamethoxazole 1 each 04/09/22 12:00 04/10/22 10:25 Sulfamethoxazole/Trimethoprim 800/160mg Ds Tab PO 1 each DAILY AKIN Administration Protocol Nutrition/Malnutrition Assess - Dietary Evaluation Nutrition/Malnutrition Findings: Nutrition Notes Start: 04/09/22 15:34 Freq: Status: Active Protocol: Document 04/09/22 15:34 SUKHI (Rec: 04/09/22 15:41 SUKHI [id number]) Nutrition Notes Need for Assessment generated from: Low BMI Initial or Follow up Assessment Current Diagnosis Sepsis Other Pertinent Diagnosis Severe scrotal cellulitis, UTI Current Diet Regular Labs/Tests Reviewed Pertinent Medications Reviewed Height 5 ft 10 in Weight 54.431 kg [place] Body Weight (kg) 75.45 BMI 17.2 Intake Prior to Admission Poor Weight Status Underweight Subjective/Other Information Pt screened for LOS. Unable to speak with pt today; pt on isolation precautions. Pt with hx of medication non- compliance; c/o generalized weakness and malaise. 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 No Is Patient Ambulatory and/or Out of Bed No REE-([facility]-confined to bed) 1755.864 Kcal/Kg value to use for calculation 40 Approximate Energy Requirements Using 2177 kcal/Kg Calculation Used for Recommendations Kcal/kg Additional Notes Pro needs 1.2-1.5g/k-82g/ day Fluid needs 1ml/kcal Nutrition Intervention Change Diet Order: Continue current diet order Add Supplement/Snack (indicate name/kcal Ensure High Protein TID /protein ) Provides kCal: 480 Provides Protein (gm) 48 Goal #1 PO intake of meals plus ONS to meet 100% energy and pro needs Goal #2 Wt maintenance and/or gain Anticipated Discharge Needs: ONS 1-2 times per day for wt maintenance; high-calorie/high -protein diet Follow-Up By: 04/13/22 Additional Comments F/U: intakes (meals/ONS), wt loss assessment (via phone if necessary)
[2022-04-11] MEDS: DOXYCYCLINE 100 MG CAP PO SCH ×2 (10:59→21:38)
[2022-04-11] MEDS: cefTRIAXone/NS 2 GM/100 ML 2 GM/100 ML BAG IV SCH (10:59)
[2022-04-11] MEDS: SULFAMETHOXAZOLE/TRIMETHOPRIM 800/160MG DS TAB PO SCH (10:59)
[2022-04-11] MEDS: NYSTATIN 500,000 UNIT/5 ML ORAL LIQD PO SCH ×4 (10:59→21:38)
--- NOTE | 2022-04-11 14:45 | Progress Note ---
Subjective Date of service: 04/11/22 Interval history: NEW TO OUR SERVICE This is a 42-year-old gentleman with history of HIV, unknown CD4 count, unknown viral load, who is not compliant with antiviral therapy for the past 6 months, who presents to the ER today with a complaint of weakness, malaise, fatigue, inability to walk or complete ADLs, generalized weakness, and scrotal pain. Pt at [facility] CT revealed soft tissue edema as well as punctate foci of soft tissue gas. He further reports that "my balls are busted." He is able to move 4 extremities. He endorses a gradual decline in functional status over the past 6 months. He used to receive his HIV care at [place]. He is not taking his antivirals. He denies headache, neck pain, chest pain, abdominal pain, shortness of breath. pt feels better circ testes exposed with 2-3cm ulcer--- mild drainage 16F oneill --[place] urine REPEAT CT -unchanged A/p scrotal cellulitis, infected wound, exposed testicle ID eval appreciated WOUND [facility] with oneill add flomax 1qd Objective - Constitutional Vitals: Vital Signs - 12hr 04/11/22 04/11/22 05:37 12:31 Temperature 98.5 F Pulse Rate 79 94 H Respiratory 20 18 Rate Blood Pressure 140/93 141/95 O2 Sat by Pulse 98 99 Oximetry - Labs CBC & Chem 7: 04/11/22 04:43 04/11/22 04:43 Labs: Abnormal lab results 04/11/22 04/11/22 Range/Units 04:43 04:43 WBC 3.2 L (4.5-11.0) K/mm3 RBC 3.02 L (3.65-5.03) M/mm3 Hgb 8.0 L (11.8-15.2) gm/dl Hct 24.5 L (35.5-45.6) % MCV 81 L (84-94) fl MCH 26 L (28-32) pg RDW 15.6 H (13.2-15.2) % Seg Neuts % (Manual) 77.0 H (40.0-70.0) % Lymphocytes % (Manual) 10.0 L (13.4-35.0) % Monocytes % (Manual) 10.0 H (0.0-7.3) % Lymphocytes # (Manual) 0.3 L (1.2-5.4) K/mm3 Sodium 134 L (137-145) mmol/L Creatinine 0.6 L (0.8-1.3) mg/dL Calcium 7.5 L (8.4-10.2) mg/dL Medications & Allergies - Medications Allergies/Adverse Reactions: Allergies No Known Allergies Allergy (Verified 04/08/22 12:08) Active Medications: Generic Name Dose Route Start Last Admin Trade Name Freq PRN Reason Stop Dose Admin Acetaminophen 650 mg 04/08/22 19:52 Acetaminophen 325 Mg Tab PO Q4H PRN Pain MILD(1-3)/Fever >100.5/CRUZ Albuterol 2.5 mg 04/08/22 19:52 Albuterol 2.5 Mg/3 Ml Nebu IH Q4HRT PRN Shortness Of Breath Doxycycline Hyclate 100 mg 04/09/22 12:00 04/11/22 10:59 Doxycycline 100 Mg Cap PO 100 mg BID AKIN Administration Protocol Hydromorphone HCl 0.25 mg 04/08/22 19:52 Hydromorphone 0.5 Mg/0.5 Ml Inj IV Q4H PRN Pain, Moderate (4-6) Hydromorphone HCl 0.5 mg 04/08/22 19:52 Hydromorphone 0.5 Mg/0.5 Ml Inj IV Q8H PRN Pain , Severe (7-10) Sodium Chloride 1,000 mls @ 125 mls/hr 04/08/22 20:00 04/11/22 07:36 Nacl 0.9% 1000 Ml IV 125 mls/hr DIRECT AKIN Administration Ceftriaxone Sodium 2 gm in 100 mls @ 200 mls/hr 04/09/22 12:00 04/11/22 10:59 Rocephin/Ns 2 Gm/100 Ml IV 200 mls/hr Q24HR AKIN Administration Protocol Fluconazole 200 mls @ 100 mls/hr 04/09/22 14:00 04/10/22 16:07 Diflucan IV 100 mls/hr Q24H AKIN Administration Protocol Vancomycin HCl 1 gm in 250 mls @ 166.667 mls/hr 04/09/22 12:00 04/11/22 14:33 Vancomycin/Ns 1 Gm/250 Ml IV 166.667 mls/hr Q12H AKIN Administration Metronidazole 500 mg 04/09/22 14:00 04/11/22 14:35 Metronidazole 500 Mg Tab PO 500 mg Q8HR AKIN Administration Protocol Nystatin 500,000 unit 04/09/22 14:00 04/11/22 14:33 Nystatin 500,000 Unit/5 Ml Oral Liqd PO 500,000 unit QID AKIN Administration Ondansetron HCl 4 mg 04/08/22 19:52 Ondansetron 4 Mg/2 Ml Inj IV Q8H PRN Nausea And Vomiting Oxycodone/Acetaminophen 1 tab 04/08/22 19:52 Oxycodone /Acetaminophen 5-325mg Tab PO Q6H PRN Pain, Moderate (4-6) Sodium Chloride 10 ml 04/08/22 22:00 04/11/22 11:00 Sodium Chloride 0.9% 10 Ml Flush Syringe IV 10 ml BID AKIN Administration Sodium Chloride 10 ml 04/08/22 19:52 04/09/22 07:03 Sodium Chloride 0.9% 10 Ml Flush Syringe IV 10 ml PRN PRN Administration LINE FLUSH Trimethoprim/Sulfamethoxazole 1 each 04/09/22 12:00 04/11/22 10:59 Sulfamethoxazole/Trimethoprim 800/160mg Ds Tab PO 1 each DAILY AKIN Administration Protocol
[2022-04-11] MEDS: FLUCONAZOLE 400 MG 200 ML IV SCH (16:58)
[2022-04-12] MEDS: VANCOMYCIN/NS 1 GM/250 ML 1 GM/250 ML BAG IV SCH ×2 (01:23→12:17)
[2022-04-12] MEDS: metroNIDAZOLE 500 MG TAB PO SCH ×3 (05:22→22:20)
--- NOTE | 2022-04-12 08:51 | Progress Note ---
History Interval history: 42 YO Male with HIV Disease/AIDS with Unknown Viral load, Medication Noncompliance, Malnutrition presents ED for evaluation of generalized weakness over the past 6 months with malaise, fatigue and 2 week scrotal pain. Patient found to have sepsis complicated by scrotal cellulitis, malnutrition, HIV disease, as well as urinary tract infection, and disseminated syphilis. 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 Continue IV antibiotics and await ID consultation. Follow-up blood and urine cultures. Await urology consultation. CT scan reveals diffuse soft t issue edema about the perineum extending to the base of the penis and scrotum. There are several associated punctate foci of soft tissue gas. Patient has persistent gas and fluid collection of the right lateral to the prostate which measures 2.6 x 1.1 cm. Bladder is also distended. 04/10/2022. Urology reports patient with exposed testicle and 2-3 cm ulcer with mild drainage. Continue IV antibiotics for sepsis/scrotal cellulitis. ID recommends ceftriaxone, Flagyl, doxycycline and IV vancomycin. Patient will also be treated with IV fluconazole and p.o. nystatin. Follow-up wound culture. Follow-up HIV RNA PCR and CD4 count. P.o. Bactrim for prophylaxis. 04/11/2022. Continue antibiotics and antifungals per ID recommendations. Continue wound care for scrotal region. Urology reports continue wound care and home with Bright. Await ID recommendations with duration of antibiotics. Blood cultures negative. 04/12/2022. Neurology recommended home with Bright and added Flomax daily. Con tinue antibiotics and antifungals per ID recommendations. Continue wound care for scrotal region. Await ID recommendations with duration of antibiotics. Blood cultures negative. Hospitalist Physical - Constitutional Vitals: Temp Pulse Resp BP Pulse Ox 99.2 F 96 H 18 142/94 99 04/11/22 17:15 04/12/22 00:05 04/12/22 00:05 04/12/22 00:05 04/12/22 04:00 General appearance: Present: mild distress, cachectic Results - Labs CBC & Chem 7: 04/11/22 04:43 04/11/22 04:43 Labs: Laboratory Last Values WBC 3.2 K/mm3 (4.5-11.0) L 04/11/22 04:43 RBC 3.02 M/mm3 (3.65-5.03) L 04/11/22 04:43 Hgb 8.0 gm/dl (11.8-15.2) L 04/11/22 04:43 Hct 24.5 % (35.5-45.6) L 04/11/22 04:43 MCV 81 fl (84-94) L 04/11/22 04:43 MCH 26 pg (28-32) L 04/11/22 04:43 MCHC 32 % (32-34) 04/11/22 04:43 RDW 15.6 % (13.2-15.2) H 04/11/22 04:43 Plt Count 291 K/mm3 (140-440) 04/11/22 04:43 [place] % (Auto) Field Hand 04/11/22 04:43 Add Manual Diff Complete 04/11/22 04:43 Total Counted 100 04/11/22 04:43 Seg Neuts % (Manual) 77.0 % (40.0-70.0) H 04/11/22 04:43 Band Neutrophils % 1.0 % 04/11/22 04:43 Lymphocytes % (Manual) 10.0 % (13.4-35.0) L 04/11/22 04:43 Reactive Lymphs % (Man) 0 % 04/11/22 04:43 Monocytes % (Manual) 10.0 % (0.0-7.3) H 04/11/22 04:43 Eosinophils % (Manual) 2.0 % (0.0-4.3) 04/11/22 04:43 Basophils % (Manual) 0 % (0.0-1.8) 04/11/22 04:43 Metamyelocytes % 0 % 04/11/22 04:43 Myelocytes % 0 % 04/11/22 04:43 Promyelocytes % 0 % 04/11/22 04:43 Blast Cells % 0 % 04/11/22 04:43 Nucleated RBC % Not Reportable 04/11/22 04:43 Seg Neutrophils # Man 2.5 K/mm3 (1.8-7.7) 04/11/22 04:43 Band Neutrophils # 0.0 K/mm3 04/11/22 04:43 Lymphocytes # (Manual) 0.3 K/mm3 (1.2-5.4) L 04/11/22 04:43 Abs React Lymphs (Man) 0.0 K/mm3 04/11/22 04:43 Monocytes # (Manual) 0.3 K/mm3 (0.0-0.8) 04/11/22 04:43 Eosinophils # (Manual) 0.1 K/mm3 (0.0-0.4) 04/11/22 04:43 Basophils # (Manual) 0.0 K/mm3 (0.0-0.1) 04/11/22 04:43 Metamyelocytes # 0.0 K/mm3 04/11/22 04:43 Myelocytes # 0.0 K/mm3 04/11/22 04:43 Promyelocytes # 0.0 K/mm3 04/11/22 04:43 Blast Cells # 0.0 K/mm3 04/11/22 04:43 WBC Morphology Not Reportable 04/11/22 04:43 Hypersegmented Neuts Not Reportable 04/11/22 04:43 Hyposegmented Neuts Not Reportable 04/11/22 04:43 Hypogranular Neuts Not Reportable 04/11/22 04:43 Smudge Cells Not Reportable 04/11/22 04:43 Toxic Granulation Not Reportable 04/11/22 04:43 Toxic Vacuolation Not Reportable 04/11/22 04:43 Dohle Bodies Not Reportable 04/11/22 04:43 Pelger-Huet Anomaly Not Reportable 04/11/22 04:43 Rylee Rods Not Reportable 04/11/22 04:43 Platelet Estimate Consistent w auto 04/11/22 04:43 Clumped Platelets Not Reportable 04/11/22 04:43 Plt Clumps, EDTA Not Reportable 04/11/22 04:43 Large Platelets Not Reportable 04/11/22 04:43 Giant Platelets Not Reportable 04/11/22 04:43 Platelet Satelliting Not Reportable 04/11/22 04:43 Plt Morphology Comment Not Reportable 04/11/22 04:43 RBC Morphology Not Reportable 04/11/22 04:43 Dimorphic RBCs Not Reportable 04/11/22 04:43 Polychromasia Not Reportable 04/11/22 04:43 Hypochromasia Not Reportable 04/11/22 04:43 Poikilocytosis Not Reportable 04/11/22 04:43 Anisocytosis 1+ 04/11/22 04:43 Microcytosis Not Reportable 04/11/22 04:43 Macrocytosis Not Reportable 04/11/22 04:43 Spherocytes Not Reportable 04/11/22 04:43 Pappenheimer Bodies Not Reportable 04/11/22 04:43 Sickle Cells Not Reportable 04/11/22 04:43 Target Cells Not Reportable 04/11/22 04:43 Tear Drop Cells Not Reportable 04/11/22 04:43 Ovalocytes Not Reportable 04/11/22 04:43 Helmet Cells Not Reportable 04/11/22 04:43 [place] Bodies Not Reportable 04/11/22 04:43 [place] Rings Not Reportable 04/11/22 04:43 Quoc Cells Not Reportable 04/11/22 04:43 Bite Cells Not Reportable 04/11/22 04:43 Crenated Cell Not Reportable 04/11/22 04:43 Elliptocytes Not Reportable 04/11/22 04:43 Acanthocytes (Spur) Not Reportable 04/11/22 04:43 Rouleaux Not Reportable 04/11/22 04:43 Hemoglobin C Crystals Not Reportable 04/11/22 04:43 Schistocytes Not Reportable 04/11/22 04:43 Malaria parasites Not Reportable 04/11/22 04:43 Gabo Bodies Not Reportable 04/11/22 04:43 Hem Pathologist Commnt No 04/11/22 04:43 PT 15.8 Sec. (12.2-14.9) H 04/08/22 14:59 INR 1.13 (0.87-1.13) 04/08/22 14:59 Sodium 134 mmol/L (137-145) L 04/11/22 04:43 Potassium 3.7 mmol/L (3.6-5.0) D 04/11/22 04:43 Chloride 102.5 mmol/L (98-107) 04/11/22 04:43 Carbon Dioxide 23 mmol/L (22-30) 04/11/22 04:43 Anion Gap 12 mmol/L 04/11/22 04:43 BUN 12 mg/dL (9-20) 04/11/22 04:43 Creatinine 0.6 mg/dL (0.8-1.3) L 04/11/22 04:43 Estimated GFR > 60 ml/min 04/11/22 04:43 BUN/Creatinine Ratio 20 % 04/11/22 04:43 Glucose 94 mg/dL (75-100) 04/11/22 04:43 Lactic Acid 1.10 mmol/L (0.7-2.0) 04/09/22 07:25 Calcium 7.5 mg/dL (8.4-10.2) L 04/11/22 04:43 Magnesium 2.60 mg/dL (1.7-2.3) H 04/08/22 14:59 Total Bilirubin 0.30 mg/dL (0.1-1.2) 04/08/22 14:59 AST 27 units/L (5-40) 04/08/22 14:59 ALT 10 units/L (7-56) 04/08/22 14:59 Alkaline Phosphatase 255 units/L (35-129) H 04/08/22 14:59 Total Creatine Kinase 74 units/L (55-170) 04/08/22 14:59 Total Protein 10.4 g/dL (6.3-8.2) H 04/08/22 14:59 Albumin 2.9 g/dL (3.9-5) L 04/08/22 14:59 Albumin/Globulin Ratio 0.4 % 04/08/22 14:59 TSH 2.390 mlU/mL (0.270-4.200) 04/08/22 14:59 Free T4 0.99 ng/dL (0.76-1.46) 04/08/22 14:59 Urine Color Straw (Yellow) 04/08/22 Unknown Urine Turbidity Cloudy (Clear) 04/08/22 Unknown Specific G[place] (Man) 1.025 (1.003-1.030) 04/08/22 Unknown Ur Protein (Man) 2+ mg/dL (Negative) 04/08/22 Unknown Ur Ketones (Man) 5 (Negative) 04/08/22 Unknown Ur Nitrite (Man) Positive (Negative) 04/08/22 Unknown Ur Reducing Substances Not Reportable 04/08/22 Unknown Urine Bilirubin (Man) Negative (Negative) 04/08/22 Unknown Urine Ictotest Not Reportable 04/08/22 Unknown Leukocyte Esterase (Man) Moderate (Negative) 04/08/22 Unknown Urine WBC (Auto) 163.0 /HPF (0.0-6.0) H 04/08/22 Unknown Urine RBC (Auto) 10.0 /HPF (0.0-6.0) 04/08/22 Unknown Urine Bacteria (Auto) 4+ /HPF (Negative) 04/08/22 Unknown Urine RBC (Manual) 3+ (Negative) 04/08/22 Unknown Urine Mucus Few /HPF 04/08/22 Unknown Vancomycin Trough 13.8 ug/mL (5.0-20.0) 04/11/22 11:38 Syphilis IgG/IgM Ab Reactive (NonReactive) A 04/08/22 14:59 RPR Titer 1:800 (1:1-1:2) 04/08/22 14:59 Coronavirus (PCR) Negative (Negative) 04/09/22 09:20 Blood Type B POSITIVE 04/08/22 23:55 Antibody Screen Negative 04/08/22 23:55 Microbiology: Microbiology 04/08/22 14:59 Peripheral/Venous Blood Culture - Preliminary NO GROWTH AFTER 72 HOURS 04/08/22 14:59 Peripheral/Venous Blood Culture - Preliminary NO GROWTH AFTER 72 HOURS 04/10/22 14:00 Urine,Clean Catch Urine Culture - Preliminary Bright/IV: Voiding Method Indwelling Catheter Active Medications - Current Medications Current Medications: Generic Name Dose Route Start Last Admin Trade Name Freq PRN Reason Stop Dose Admin Acetaminophen 650 mg 04/08/22 19:52 Acetaminophen 325 Mg Tab PO Q4H PRN Pain MILD(1-3)/Fever >100.5/CRUZ Albuterol 2.5 mg 04/08/22 19:52 Albuterol 2.5 Mg/3 Ml Nebu IH Q4HRT PRN Shortness Of Breath Doxycycline Hyclate 100 mg 04/09/22 12:00 04/11/22 21:38 Doxycycline 100 Mg Cap PO 100 mg BID AKIN Administration Protocol Hydromorphone HCl 0.25 mg 04/08/22 19:52 Hydromorphone 0.5 Mg/0.5 Ml Inj IV Q4H PRN Pain, Moderate (4-6) Hydromorphone HCl 0.5 mg 04/08/22 19:52 Hydromorphone 0.5 Mg/0.5 Ml Inj IV Q8H PRN Pain , Severe (7-10) Sodium Chloride 1,000 mls @ 125 mls/hr 04/08/22 20:00 04/11/22 07:36 Nacl 0.9% 1000 Ml IV 125 mls/hr DIRECT AKIN Administration Ceftriaxone Sodium 2 gm in 100 mls @ 200 mls/hr 04/09/22 12:00 04/11/22 10:59 Rocephin/Ns 2 Gm/100 Ml IV 200 mls/hr Q24HR AKIN Administration Protocol Fluconazole 200 mls @ 100 mls/hr 04/09/22 14:00 04/11/22 16:58 Diflucan IV 100 mls/hr Q24H AKIN Administration Protocol Vancomycin HCl 1 gm in 250 mls @ 166.667 mls/hr 04/09/22 12:00 04/12/22 01:23 Vancomycin/Ns 1 Gm/250 Ml IV 166.667 mls/hr Q12H AKIN Administration Metronidazole 500 mg 04/09/22 14:00 04/12/22 05:22 Metronidazole 500 Mg Tab PO 500 mg Q8HR AKIN Administration Protocol Nystatin 500,000 unit 04/09/22 14:00 04/11/22 21:38 Nystatin 500,000 Unit/5 Ml Oral Liqd PO 500,000 unit QID AKIN Administration Ondansetron HCl 4 mg 04/08/22 19:52 Ondansetron 4 Mg/2 Ml Inj IV Q8H PRN Nausea And Vomiting Oxycodone/Acetaminophen 1 tab 04/08/22 19:52 Oxycodone /Acetaminophen 5-325mg Tab PO Q6H PRN Pain, Moderate (4-6) Sodium Chloride 10 ml 04/08/22 22:00 04/11/22 21:38 Sodium Chloride 0.9% 10 Ml Flush Syringe IV 10 ml BID AKIN Administration Sodium Chloride 10 ml 04/08/22 19:52 04/09/22 07:03 Sodium Chloride 0.9% 10 Ml Flush Syringe IV 10 ml PRN PRN Administration LINE FLUSH Tamsulosin HCl 0.4 mg 04/12/22 10:00 Tamsulosin 0.4 Mg Cap PO QDAY [facility] Trimethoprim/Sulfamethoxazole 1 each 04/09/22 12:00 04/11/22 10:59 Sulfamethoxazole/Trimethoprim 800/160mg Ds Tab PO 1 each DAILY AKIN Administration Protocol Nutrition/Malnutrition Assess - Dietary Evaluation Nutrition/Malnutrition Findings: Nutrition Notes Start: 04/09/22 15:34 Freq: Status: Active Protocol: Document 04/09/22 15:34 SUKHI (Rec: 04/09/22 15:41 SUKHI [id number]) Nutrition Notes Need for Assessment generated from: Low BMI Initial or Follow up Assessment Current Diagnosis Sepsis Other Pertinent Diagnosis Severe scrotal cellulitis, UTI Current Diet Regular Labs/Tests Reviewed Pertinent Medications Reviewed Height 5 ft 10 in Weight 54.431 kg [place] Body Weight (kg) 75.45 BMI 17.2 Intake Prior to Admission Poor Weight Status Underweight Subjective/Other Information Pt screened for LOS. Unable to speak with pt today; pt on isolation precautions. Pt with hx of medication non- compliance; c/o generalized weakness and malaise. Burn Absent Trauma Absent Skin Integrity/Comment Scrotal swelling Minimum of two criteria Yes Energy Intake (severe) < or equal to 50% Estimated Energy Requirement > or equal to 5 days Fluid Accumulation Moderate to Severe (severe) #1 Nutrition Diagnosis Predicted suboptimal energy intake Etiology poor appetite [employer], hx of HIV As Evidenced by Signs and Symptoms pt reports generalized weakness and malaise, BMI 17.2 Is patient on ventilator? No Is Patient Ambulatory and/or Out of Bed No REE-([facility]-confined to bed) 1755.864 Kcal/Kg value to use for calculation 40 Approximate Energy Requirements Using 2177 kcal/Kg Calculation Used for Recommendations Kcal/kg Additional Notes Pro needs 1.2-1.5g/k-82g/ day Fluid needs 1ml/kcal Nutrition Intervention Change Diet Order: Continue current diet order Add Supplement/Snack (indicate name/kcal Ensure High Protein TID /protein ) Provides kCal: 480 Provides Protein (gm) 48 Goal #1 PO intake of meals plus ONS to meet 100% energy and pro needs Goal #2 Wt maintenance and/or gain Anticipated Discharge Needs: ONS 1-2 times per day for wt maintenance; high-calorie/high -protein diet Follow-Up By: 04/13/22 Additional Comments F/U: intakes (meals/ONS), wt loss assessment (via phone if necessary)
[2022-04-12 09:20] LABS: Hematocrit 21.7 % (35.5-45.6); Hemoglobin 6.9 gm/dl (11.8-15.2); Mean Corpuscular HGB Conc 32 % (32-34); Mean Corpuscular Volume 82 fl (84-94); Platelet Count 259 K/mm3 (140-440); Red Blood Count 2.63 M/mm3 (3.65-5.03); Red Cell Distribution Width 15.8 % (13.2-15.2)
[2022-04-12 09:38] LABS: Blood Urea Nitrogen 14 mg/dL (9-20); Calcium 6.7 mg/dL (8.4-10.2); Hemolysis Index 0
[2022-04-12 09:39] LABS: BUN/Creatinine Ratio 23
[2022-04-12] MEDS: cefTRIAXone/NS 2 GM/100 ML 2 GM/100 ML BAG IV SCH (09:48)
[2022-04-12] MEDS: DOXYCYCLINE 100 MG CAP PO SCH ×2 (09:48→22:20)
[2022-04-12] MEDS: SULFAMETHOXAZOLE/TRIMETHOPRIM 800/160MG DS TAB PO SCH (09:48)
[2022-04-12] MEDS: TAMSULOSIN 0.4 MG CAP PO SCH (09:48)
[2022-04-12] MEDS: NYSTATIN 500,000 UNIT/5 ML ORAL LIQD PO SCH ×4 (09:48→22:20)
[2022-04-12 11:19] LABS: Anisocytosis 1+; Platelet Estimate Consistent w Auto; Total Cells Counted 100
[2022-04-12] MEDS: FLUCONAZOLE 400 MG 200 ML IV SCH (13:07)
[2022-04-12] MEDS: SODIUM CHLORIDE 0.9% 1000 ML 1,000 ML IV SCH (22:22)
[2022-04-13] MEDS: VANCOMYCIN/NS 1 GM/250 ML 1 GM/250 ML BAG IV SCH ×2 (00:52→11:29)
[2022-04-13] MEDS: metroNIDAZOLE 500 MG TAB PO SCH ×3 (05:42→22:09)
[2022-04-13 05:58] LABS: Hematocrit 20.8 % (35.5-45.6); Hemoglobin 6.7 gm/dl (11.8-15.2); Mean Corpuscular HGB Conc 32 % (32-34); Mean Corpuscular Volume 82 fl (84-94); Platelet Count 234 K/mm3 (140-440); Red Blood Count 2.53 M/mm3 (3.65-5.03); Red Cell Distribution Width 16.5 % (13.2-15.2)
[2022-04-13 06:14] LABS: BUN/Creatinine Ratio 18; Blood Urea Nitrogen 11 mg/dL (9-20); Calcium 7.5 mg/dL (8.4-10.2); Hemolysis Index 1
[2022-04-13 07:01] LABS: Eosinophils % (Manual) 0 % (0.0-4.3); Platelet Estimate Consistent w Auto; Total Cells Counted 100
[2022-04-13] MEDS ORDERED: SODIUM CHLORIDE 0.9% 500 ML 500 ML IV NR (08:04)
[2022-04-13] MEDS: cefTRIAXone/NS 2 GM/100 ML 2 GM/100 ML BAG IV SCH (09:12)
[2022-04-13] MEDS: TAMSULOSIN 0.4 MG CAP PO SCH (09:12)
[2022-04-13] MEDS: SULFAMETHOXAZOLE/TRIMETHOPRIM 800/160MG DS TAB PO SCH (09:12)
[2022-04-13] MEDS: NYSTATIN 500,000 UNIT/5 ML ORAL LIQD PO SCH ×4 (09:12→22:08)
[2022-04-13] MEDS: DOXYCYCLINE 100 MG CAP PO SCH ×2 (09:12→22:09)
--- NOTE | 2022-04-13 10:58 | Progress Note ---
Assessment and Plan Cultures: 04/08/2022 blood culture: no growth 04/08/2022 RPR: Reactive, titer: 1:800 04/10/2022 urine culture: No significant growth A/P: 42-year-old male with HIV, AIDS, noncompliant with ART, used to follow-up at [facility] came into the emergency room yesterday with complaints of scrotal swelling and pain along with gradually declining functional status over the last 6 months: #Severe scrotal cellulitis, infected wound, exposed testicle: CT revealed soft tissue edema as well as punctate foci of soft tissue gas. Was evaluated by urology, repeat CT was done which showed similar skin thickening and subcutaneous gas at the base of the penis, similar fluid collection along the right lateral base of the prostate gland with small locules of gas. Recommended wound care, Bright with outpatient follow-up. #Secondary syphilis/disseminated syphilis: RPR: Reactive, titer: 1:800, also treat for presumptive neurosyphilis. #Severe oral thrush, likely esophagitis as well #HIV with AIDS: Used to follow-up with [place], has not taken ART for more than a year, did not want to tell me the reason. Patient is interested in restarting his HIV meds, used to be on Biktarvy, will restart here. #Protein calorie malnutrition #Poor dentition Recs: -Okay to insert midline -Continue IV ceftriaxone 2 g daily with end date of 04/30/2022 -P.O. Biktarvy started here, upon discharge, please give him a prescription for PO Biktarvy 1 tab daily x 30 days with 1 refill which will give him adequate time to follow-up with his HIV providers at [facility] -P.O. Flagyl 500 mg TID x 3 weeks ending 04/30/2022 -P.O. fluconazole 200 mg daily for 3 weeks ending 04/30/2022 -P.O. doxycycline 100 mg twice daily for 3 weeks ending 04/30/2022 -P.O. Bactrim DS 1 tablet daily for prophylaxis x 30 days with 1 refill -wound care and outpatient follow-up with urology -Patient was strongly urged to resume his outpatient HIV care with [facility] -Outpatient dental follow-up, has poor dentition and several decayed teeth -Case management orders placed for OPAT: IV antibiotics and weekly labs -HIV RNA PCR, CD4 count pending -guarded prognosis, especially if he remains non-compliant D/W Dr. Ponce. Callie Garsia MD, FACP, [facility] ([facility]) O: [phone] F: [phone] C: [phone] Subjective Date of service: 04/13/22 Interval history: Remains afebrile. Denies any new complaints. Was evaluated by urology, recommended wound care, Bright with outpatient follow-up. Objective - Exam Narrative Exam: Physical Exam: Constitutional: Alert, cooperative. No acute distress. Cachexia Head, Ears, Nose: Normocephalic, atraumatic. External ears, nose normal Eyes: Conjunctivae/corneas clear. No icterus. No ptosis. Neck: Supple, no meningeal signs Oral: oral thrush, poor dentition Cardiovascular: S1, S2 + Respiratory: Good air entry, clear to auscultation bilaterally GI: Soft, non-tender; bowel sounds normal. No peritoneal signs : Bright present, scrotal wound with purulence, exposed testicle Musculoskeletal: No pedal edema, no cyanosis. Cachexia Skin: Hypopigmented macular rash Hem/Lymphatic: No palpable cervical or supraclavicular nodes. No lymphangitis Psych: mood pleasant Neurological: Awake, alert, oriented. No gross abnormality - Constitutional Vitals: Vital Signs Temp Pulse Resp BP Pulse Ox 99.0 F 98 H 18 143/86 97 04/13/22 05:01 04/13/22 05:01 04/13/22 05:01 04/13/22 05:01 04/13/22 05:01 Temperature -Last 24 Hours Temperature 99.0 F Temperature 99.6 F Temperature 97.9 F Temperature 97.6 F - Labs CBC & Chem 7: 04/13/22 05:34 04/13/22 05:34 Labs: Abnormal lab results 04/08/22 04/12/22 04/13/22 Range/Units 14:59 07:25 05:34 WBC 3.4 L (4.5-11.0) K/mm3 RBC 2.53 L (3.65-5.03) M/mm3 Hgb 6.7 L (11.8-15.2) gm/dl Hct 20.8 L (35.5-45.6) % MCV 82 L (84-94) fl MCH 26 L (28-32) pg RDW 16.5 H (13.2-15.2) % Seg Neuts % (Manual) 71.0 H (40.0-70.0) % Monocytes % (Manual) 23.0 H 10.0 H (0.0-7.3) % Lymphocytes # (Manual) 0.5 L 0.6 L (1.2-5.4) K/mm3 Sodium (137-145) mmol/L Creatinine (0.8-1.3) mg/dL Calcium (8.4-10.2) mg/dL T.pallidum Ab (FTA-ABS) Reactive H (Nonreactive) 04/13/22 Range/Units 05:34 WBC (4.5-11.0) K/mm3 RBC (3.65-5.03) M/mm3 Hgb (11.8-15.2) gm/dl Hct (35.5-45.6) % MCV (84-94) fl MCH (28-32) pg RDW (13.2-15.2) % Seg Neuts % (Manual) (40.0-70.0) % Monocytes % (Manual) (0.0-7.3) % Lymphocytes # (Manual) (1.2-5.4) K/mm3 Sodium 136 L (137-145) mmol/L Creatinine 0.6 L (0.8-1.3) mg/dL Calcium 7.5 L (8.4-10.2) mg/dL T.pallidum Ab (FTA-ABS) (Nonreactive)
--- NOTE | 2022-04-13 15:35 | Progress Note ---
Assessment and Plan Assessment and plan: 42 YO Male with HIV Disease/AIDS with Unknown Viral load, Medication Noncompliance, Malnutrition presents ED for evaluation of generalized weakness over the past 6 months with malaise, fatigue and 2 week scrotal pain. Patient found to have sepsis complicated by scrotal cellulitis, malnutrition, HIV dis ease, as well as urinary tract infection, and disseminated syphilis. Hospital course: 04/09/2022. Continue IV antibiotics and await ID consultation. Follow-up blood and urine cultures. Await urology consultation. CT scan reveals diffuse soft tissue edema about the perineum extending to the base of the penis and scrotum. There are several associated punctate foci of soft tissue gas. Patient has persistent gas and fluid collection of the right lateral to the prostate which measures 2.6 x 1.1 cm. Bladder is also distended. 04/10/2022. Urology reports patient with exposed testicle and 2-3 cm ulcer with mild drainage. Continue IV antibiotics for sepsis/scrotal cellulitis. ID recommends ceftriaxone, Flagyl, doxycycline and IV vancomycin. Patient will also be treated with IV fluconazole and p.o. nystatin. Follow-up wound culture. Follow-up HIV RNA PCR and CD4 count. P.o. Bactrim for prophylaxis. 04/11/2022. Continue antibiotics and antifungals per ID recommendations. Continue wound care for scrotal region. Urology reports continue wound care and home with Bright. Await ID recommendations with duration of antibiotics. Blood cultures negative. 04/12/2022. Urology recommended home with Bright and added Flomax daily. Continue antibiotics and antifungals per ID recommendations. Continue wound care for scrotal region. Await ID recommendations with duration of antibiotics. Blood cultures negative. 04/13/2022. Final antibiotic course determined by ID. Patient will obtain wound care for scrotal cellulitis upon discharge. Blood cultures NGTD x4 days. Patient counseled at length about the importance of medication compliance and following up with infectious disease for HIV in outpatient setting. Patient will be discharged with Bactrim double strength 1 tab twice daily, doxycycline 100 mg twice daily, Flagyl 500 mg every 8 hours, fluconazole 200 mg daily, and Biktarvy 1 tab daily. Patient will require Rocephin 1 g daily until 04/30/2022. Midline ordered for outpatient antibiotic administration. Social work made aware. 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 Starting Bactrim DS 1 tab daily, doxycycline 100 mg twice daily, Flagyl 500 mg every 8 hours, fluconazole 200 mg daily Infectious disease consulted; appreciate recs Urology consulted; appreciate recs. Patient will leave with Bright catheter and resume Flomax 4 mg daily. Patient will follow-up with urology in outpatient setting. #Disseminated syphilis Patient will receive empiric therapy per infectious disease. #Enteritisresolved #Oral candidiasis #Untreated HIV/AIDS Infectious disease consulted; appreciate recs Restarting Biktarvy 1 tablet daily. Starting fluconazole 200 mg daily. Oral candidiasis resulting from patient not being adherent with antiretrovirals. Patient counseled at length the importance of medication compliance. #Acute cystitis without hematuriaresolved Urinalysis revealing positive nitrite, moderate leukocyte esterase, WBC 163, 4+ bacteria Empirically being treated with Rocephin 1 g daily (completed 3-day course) #Moderate protein caloric malnutrition Albumin 2.9 Starting dietary supplementation #Medical noncompliance Patient counseled about the importance of medication compliance. Patient wanting to restart antiretroviral therapy. #Advanced care planning -Disease education conducted, care plan discussed, diagnoses discussed, prognosis discussed, and patient acknowledges understanding with care plan -Time: +30 min #Discharge planning - Patient is pending establishment of home health services and IV antibiotic administration at home - Case management has been made aware. - Discharge is tentatively 04/14/2022 Disposition Plan: For pending possible discharge tomorrow Total Time Spent with Patient (Minutes): 45 minutes History Interval history: No acute events overnight. Hospitalist Physical - Constitutional Vitals: Temp Pulse Resp BP Pulse Ox 98.8 F 107 H 16 139/76 96 04/13/22 11:17 04/13/22 11:17 04/13/22 11:17 04/13/22 11:17 04/13/22 11:17 General appearance: Present: mild distress, cachectic, other (Scrotal cellulitis with decreased purulence; Bright catheter in place) - EENT Eyes: Present: PERRL, EOM intact ENT: hearing intact, clear oral mucosa, poor dentition - Neck Neck: Present: supple, normal ROM - Respiratory Respiratory effort: normal Respiratory: bilateral: CTA - Cardiovascular Rhythm: regular Heart Sounds: Present: S1 & S2 - Extremities Extremities: no ischemia, pulses intact, pulses symmetrical, No edema, normal temperature, normal color Peripheral Pulses: within normal limits - Abdominal General gastrointestinal: soft, non-tender, non-distended, normal bowel sounds - Integumentary Integumentary: Present: clear, warm, dry - Psychiatric Psychiatric: appropriate mood/affect, cooperative - Neurologic Neurologic: CNII-XII intact, moves all extremities - Allied Health Allied health notes reviewed: nursing, social work Results - Labs CBC & Chem 7: 04/13/22 05:34 04/13/22 05:34 Labs: Laboratory Last Values WBC 3.4 K/mm3 (4.5-11.0) L 04/13/22 05:34 RBC 2.53 M/mm3 (3.65-5.03) L 04/13/22 05:34 Hgb 6.7 gm/dl (11.8-15.2) L 04/13/22 05:34 Hct 20.8 % (35.5-45.6) L 04/13/22 05:34 MCV 82 fl (84-94) L 04/13/22 05:34 MCH 26 pg (28-32) L 04/13/22 05:34 MCHC 32 % (32-34) 04/13/22 05:34 RDW 16.5 % (13.2-15.2) H 04/13/22 05:34 Plt Count 234 K/mm3 (140-440) 04/13/22 05:34 [place] % (Auto) [employer] 04/13/22 05:34 Baso % (Auto) [employer] 04/13/22 05:34 Add Manual Diff Complete 04/13/22 05:34 Total Counted 100 04/13/22 05:34 Seg Neuts % (Manual) 71.0 % (40.0-70.0) H 04/13/22 05:34 Band Neutrophils % 0 % 04/13/22 05:34 Lymphocytes % (Manual) 18.0 % (13.4-35.0) 04/13/22 05:34 Reactive Lymphs % (Man) 0 % 04/13/22 05:34 Monocytes % (Manual) 10.0 % (0.0-7.3) H 04/13/22 05:34 Eosinophils % (Manual) 0 % (0.0-4.3) 04/13/22 05:34 Basophils % (Manual) 1.0 % (0.0-1.8) 04/13/22 05:34 Metamyelocytes % 0 % 04/13/22 05:34 Myelocytes % 0 % 04/13/22 05:34 Promyelocytes % 0 % 04/13/22 05:34 Blast Cells % 0 % 04/13/22 05:34 Nucleated RBC % Not Reportable 04/13/22 05:34 Seg Neutrophils # Man 2.4 K/mm3 (1.8-7.7) 04/13/22 05:34 Band Neutrophils # 0.0 K/mm3 04/13/22 05:34 Lymphocytes # (Manual) 0.6 K/mm3 (1.2-5.4) L 04/13/22 05:34 Abs React Lymphs (Man) 0.0 K/mm3 04/13/22 05:34 Monocytes # (Manual) 0.3 K/mm3 (0.0-0.8) 04/13/22 05:34 Eosinophils # (Manual) 0.0 K/mm3 (0.0-0.4) 04/13/22 05:34 Basophils # (Manual) 0.0 K/mm3 (0.0-0.1) 04/13/22 05:34 Metamyelocytes # 0.0 K/mm3 04/13/22 05:34 Myelocytes # 0.0 K/mm3 04/13/22 05:34 Promyelocytes # 0.0 K/mm3 04/13/22 05:34 Blast Cells # 0.0 K/mm3 04/13/22 05:34 WBC Morphology Not Reportable 04/13/22 05:34 Hypersegmented Neuts Not Reportable 04/13/22 05:34 Hyposegmented Neuts Not Reportable 04/13/22 05:34 Hypogranular Neuts Not Reportable 04/13/22 05:34 Smudge Cells Not Reportable 04/13/22 05:34 Toxic Granulation Not Reportable 04/13/22 05:34 Toxic Vacuolation Not Reportable 04/13/22 05:34 Dohle Bodies Not Reportable 04/13/22 05:34 Pelger-Huet Anomaly Not Reportable 04/13/22 05:34 Rylee Rods Not Reportable 04/13/22 05:34 Platelet Estimate Consistent w auto 04/13/22 05:34 Clumped Platelets Not Reportable 04/13/22 05:34 Plt Clumps, EDTA Not Reportable 04/13/22 05:34 Large Platelets Not Reportable 04/13/22 05:34 Giant Platelets Not Reportable 04/13/22 05:34 Platelet Satelliting Not Reportable 04/13/22 05:34 Plt Morphology Comment Not Reportable 04/13/22 05:34 RBC Morphology Not Reportable 04/13/22 05:34 Dimorphic RBCs Not Reportable 04/13/22 05:34 Polychromasia Not Reportable 04/13/22 05:34 Hypochromasia Not Reportable 04/13/22 05:34 Poikilocytosis Not Reportable 04/13/22 05:34 Anisocytosis Not Reportable 04/13/22 05:34 Microcytosis Not Reportable 04/13/22 05:34 Macrocytosis Not Reportable 04/13/22 05:34 Spherocytes Not Reportable 04/13/22 05:34 Pappenheimer Bodies Not Reportable 04/13/22 05:34 Sickle Cells Not Reportable 04/13/22 05:34 Target Cells Not Reportable 04/13/22 05:34 Tear Drop Cells Not Reportable 04/13/22 05:34 Ovalocytes Not Reportable 04/13/22 05:34 Helmet Cells Not Reportable 04/13/22 05:34 Zamora-Lynn Bodies Not Reportable 04/13/22 05:34 Steens Rings Not Reportable 04/13/22 05:34 Quoc Cells Not Reportable 04/13/22 05:34 Bite Cells Not Reportable 04/13/22 05:34 Crenated Cell Not Reportable 04/13/22 05:34 Elliptocytes Not Reportable 04/13/22 05:34 Acanthocytes (Spur) Not Reportable 04/13/22 05:34 Rouleaux Not Reportable 04/13/22 05:34 Hemoglobin C Crystals Not Reportable 04/13/22 05:34 Schistocytes Not Reportable 04/13/22 05:34 Malaria parasites Not Reportable 04/13/22 05:34 Gabo Bodies Not Reportable 04/13/22 05:34 Hem Pathologist Commnt No 04/13/22 05:34 PT 15.8 Sec. (12.2-14.9) H 04/08/22 14:59 INR 1.13 (0.87-1.13) 04/08/22 14:59 Sodium 136 mmol/L (137-145) L 04/13/22 05:34 Potassium 4.1 mmol/L (3.6-5.0) 04/13/22 05:34 Chloride 104.8 mmol/L (98-107) 04/13/22 05:34 Carbon Dioxide 24 mmol/L (22-30) 04/13/22 05:34 Anion Gap 11 mmol/L 04/13/22 05:34 BUN 11 mg/dL (9-20) 04/13/22 05:34 Creatinine 0.6 mg/dL (0.8-1.3) L 04/13/22 05:34 Estimated GFR > 60 ml/min 04/13/22 05:34 BUN/Creatinine Ratio 18 % 04/13/22 05:34 Glucose 82 mg/dL (75-100) 04/13/22 05:34 Lactic Acid 1.10 mmol/L (0.7-2.0) 04/09/22 07:25 Calcium 7.5 mg/dL (8.4-10.2) L 04/13/22 05:34 Magnesium 2.60 mg/dL (1.7-2.3) H 04/08/22 14:59 Total Bilirubin 0.30 mg/dL (0.1-1.2) 04/08/22 14:59 AST 27 units/L (5-40) 04/08/22 14:59 ALT 10 units/L (7-56) 04/08/22 14:59 Alkaline Phosphatase 255 units/L (35-129) H 04/08/22 14:59 Total Creatine Kinase 74 units/L (55-170) 04/08/22 14:59 Total Protein 10.4 g/dL (6.3-8.2) H 04/08/22 14:59 Albumin 2.9 g/dL (3.9-5) L 04/08/22 14:59 Albumin/Globulin Ratio 0.4 % 04/08/22 14:59 TSH 2.390 mlU/mL (0.270-4.200) 04/08/22 14:59 Free T4 0.99 ng/dL (0.76-1.46) 04/08/22 14:59 Urine Color Straw (Yellow) 04/08/22 Unknown Urine Turbidity Cloudy (Clear) 04/08/22 Unknown Specific [place] (Man) 1.025 (1.003-1.030) 04/08/22 Unknown Ur Protein (Man) 2+ mg/dL (Negative) 04/08/22 Unknown Ur Ketones (Man) 5 (Negative) 04/08/22 Unknown Ur Nitrite (Man) Positive (Negative) 04/08/22 Unknown Ur Reducing Substances Not Reportable 04/08/22 Unknown Urine Bilirubin (Man) Negative (Negative) 04/08/22 Unknown Urine Ictotest Not Reportable 04/08/22 Unknown Leukocyte Esterase (Man) Moderate (Negative) 04/08/22 Unknown Urine WBC (Auto) 163.0 /HPF (0.0-6.0) H 04/08/22 Unknown Urine RBC (Auto) 10.0 /HPF (0.0-6.0) 04/08/22 Unknown Urine Bacteria (Auto) 4+ /HPF (Negative) 04/08/22 Unknown Urine RBC (Manual) 3+ (Negative) 04/08/22 Unknown Urine Mucus Few /HPF 04/08/22 Unknown Vancomycin Trough 13.8 ug/mL (5.0-20.0) 04/11/22 11:38 Syphilis IgG/IgM Ab Reactive (NonReactive) A 04/08/22 14:59 RPR Titer 1:800 (1:1-1:2) 04/08/22 14:59 T.pallidum Ab (FTA-ABS) Reactive (Nonreactive) H 04/08/22 14:59 Coronavirus (PCR) Negative (Negative) 04/09/22 09:20 Blood Type B POSITIVE 04/13/22 11:15 Antibody Screen Negative 04/13/22 11:15 Crossmatch See Detail 04/13/22 11:15 Microbiology: Microbiology 04/08/22 14:59 Peripheral/Venous Blood Culture - Preliminary NO GROWTH AFTER 4 DAYS 04/08/22 14:59 Peripheral/Venous Blood Culture - Preliminary NO GROWTH AFTER 4 DAYS Bright/IV: Voiding Method Indwelling Catheter Active Medications - Current Medications Current Medications: Generic Name Dose Route Start Last Admin Trade Name Freq PRN Reason Stop Dose Admin Acetaminophen 650 mg 04/08/22 19:52 Acetaminophen 325 Mg Tab PO Q4H PRN Pain MILD(1-3)/Fever >100.5/CRUZ Albuterol 2.5 mg 04/08/22 19:52 Albuterol 2.5 Mg/3 Ml Nebu IH Q4HRT PRN Shortness Of Breath Doxycycline Hyclate 100 mg 04/09/22 12:00 04/13/22 09:12 Doxycycline 100 Mg Cap PO 04/30/22 22:01 100 mg BID AKIN Administration Protocol Hydromorphone HCl 0.25 mg 04/08/22 19:52 Hydromorphone 0.5 Mg/0.5 Ml Inj IV Q4H PRN Pain, Moderate (4-6) Hydromorphone HCl 0.5 mg 04/08/22 19:52 Hydromorphone 0.5 Mg/0.5 Ml Inj IV Q8H PRN Pain , Severe (7-10) Sodium Chloride 1,000 mls @ 125 mls/hr 04/08/22 20:00 04/12/22 22:22 Nacl 0.9% 1000 Ml IV 125 mls/hr DIRECT AKIN Administration Ceftriaxone Sodium 2 gm in 100 mls @ 200 mls/hr 04/09/22 12:00 04/13/22 09:12 Rocephin/Ns 2 Gm/100 Ml IV 04/30/22 10:29 200 mls/hr Q24HR AKIN Administration Protocol Fluconazole 200 mls @ 100 mls/hr 04/09/22 14:00 04/12/22 13:57 Diflucan IV 04/30/22 15:59 100 mls/hr Q24H AKIN Infusion Protocol Vancomycin HCl 1 gm in 250 mls @ 166.667 mls/hr 04/09/22 12:00 04/13/22 11:29 Vancomycin/Ns 1 Gm/250 Ml IV 166.6 mls/hr Q12H AKIN Administration Sodium Chloride 500 mls @ 0 mls/hr 04/13/22 08:04 Nacl 0.9% 500 Ml IV 04/14/22 08:03 ONCE NR As Directed Metronidazole 500 mg 04/09/22 14:00 04/13/22 15:23 Metronidazole 500 Mg Tab PO 04/30/22 22:01 500 mg Q8HR AKIN Administration Protocol Nystatin 500,000 unit 04/09/22 14:00 04/13/22 15:23 Nystatin 500,000 Unit/5 Ml Oral Liqd PO 500,000 unit QID AKIN Administration Ondansetron HCl 4 mg 04/08/22 19:52 04/13/22 05:45 Ondansetron 4 Mg/2 Ml Inj IV 4 mg Q8H PRN Administration Nausea And Vomiting Oxycodone/Acetaminophen 1 tab 04/08/22 19:52 Oxycodone /Acetaminophen 5-325mg Tab PO Q6H PRN Pain, Moderate (4-6) Sodium Chloride 10 ml 04/08/22 22:00 04/13/22 09:12 Sodium Chloride 0.9% 10 Ml Flush Syringe IV 10 ml BID AKIN Administration Sodium Chloride 10 ml 04/08/22 19:52 04/13/22 05:45 Sodium Chloride 0.9% 10 Ml Flush Syringe IV 10 ml PRN PRN Administration LINE FLUSH Tamsulosin HCl 0.4 mg 04/12/22 10:00 04/13/22 09:12 Tamsulosin 0.4 Mg Cap PO 0.4 mg QDAY AKIN Administration Trimethoprim/Sulfamethoxazole 1 each 04/09/22 12:00 04/13/22 09:12 Sulfamethoxazole/Trimethoprim 800/160mg Ds Tab PO 1 each DAILY AKIN Administration Protocol Nutrition/Malnutrition Assess - Dietary Evaluation Nutrition/Malnutrition Findings: Nutrition Notes Start: 04/09/22 15:34 Freq: Status: Active Protocol: Document 04/09/22 15:34 SUKHI (Rec: 04/09/22 15:41 KSCAROLINA [id number]) Nutrition Notes Need for Assessment generated from: Low BMI Initial or Follow up Assessment Current Diagnosis Sepsis Other Pertinent Diagnosis Severe scrotal cellulitis, UTI Current Diet Regular Labs/Tests Reviewed Pertinent Medications Reviewed Height 5 ft 10 in Weight 54.431 kg [place] Body Weight (kg) 75.45 BMI 17.2 Intake Prior to Admission Poor Weight Status Underweight Subjective/Other Information Pt screened for LOS. Unable to speak with pt today; pt on isolation precautions. Pt with hx of medication non- compliance; c/o generalized weakness and malaise. 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 No Is Patient Ambulatory and/or Out of Bed No REE-([place]-Kailey Ordonez-confined to bed) 1755.864 Kcal/Kg value to use for calculation 40 Approximate Energy Requirements Using 2177 kcal/Kg Calculation Used for Recommendations Kcal/kg Additional Notes Pro needs 1.2-1.5g/k-82g/ day Fluid needs 1ml/kcal Nutrition Intervention Change Diet Order: Continue current diet order Add Supplement/Snack (indicate name/kcal Ensure High Protein TID /protein ) Provides kCal: 480 Provides Protein (gm) 48 Goal #1 PO intake of meals plus ONS to meet 100% energy and pro needs Goal #2 Wt maintenance and/or gain Anticipated Discharge Needs: ONS 1-2 times per day for wt maintenance; high-calorie/high -protein diet Follow-Up By: 04/13/22 Additional Comments F/U: intakes (meals/ONS), wt loss assessment (via phone if necessary)
--- NOTE | 2022-04-13 15:52 | Discharge Summary ---
Providers - Providers Date of Admission: 04/08/22 19:52 Date of discharge: 04/14/22 Attending physician: JOÃO HENRIQUEZ MD 04/08/22 14:50 Consult to Physician [CONS] Stat Comment: Consulting Provider: JONI SANTIZO Physician Instructions: Reason For Exam: Testicular infection. 04/08/22 19:49 Consult to Physician [CONS] Routine Comment: Dr. Pedro spoke with Dr. Garsia @ 2004 Consulting Provider: MASHA LEE Physician Instructions: Reason For Exam: hiv, syphillis 04/10/22 12:10 Consult to Wound/ET Nurse [CONS] Stat Reason For Exam: wound eval -scrotum wound 04/13/22 10:34 Midline [Consult to PICC Line RN] [CONS] Routine Reason For Exam: Antibiotic management Type Line:: Midline 04/13/22 10:59 Consult to Case Management [CONS] Routine Services Needed at Discharge: Other Notified:: CM Comment:: IV antibiotics Additional Physician Instructions: [facility] ([facility]) O: [phone] F: [phone] OUTPATIENT PARENTERAL ANTIBIOTIC THERAPY (OPAT) ORDERS Diagnoses: Scrotal cellulitis, syphilis, HIV with AIDS Antimicrobial administration: IV ceftriaxone 2 g daily x 3 weeks with end date of 04/30/2022. - Remove PICC/mid line after last dose unless otherwise instructed. Lines: Maintain IV access with weekly dressing changes and locks per protocol. Lab monitoring: - CBC with differential, CMP, CRP once a week every Tuesday/Tuesday while on IV antibiotics. - Please fax results to [phone] and call [phone] for critical lab results. Callie Garsia MD, FACP, JASON [facility] Primary care physician: TERE MARTINEZ Hospitalization Reason for admission: Sepsis; severe scrotal cellulitis with exposed testicle Condition: Poor Pertinent studies: Reviewed. Procedures: None. Hospital course: The patient is a 42 YO Male with HIV Disease/AIDS with Unknown Viral load, Medication Noncompliance, Malnutrition presents ED for evaluation. Patient reports "my balls are busted". Patient states that he has experienced generalized weakness over the past 6 months with worsening symptoms over the same timeframe. Patient acknowledges generalized weakness, malaise, fatigue. Patient states that he has experienced "a pain over the past 2 weeks with worsening symptoms over the same timeframe. Patient states that he has become unable to walk due to scrotal pain. Patient knowledges foul-smelling discharge from the scrotum. EMS was notified and upon arrival the patient was found to be in distress and subsequent transported to [facility] for further care and evaluation of the aforementioned symptoms. The patient was seen and evaluated emergency department. All lab and imaging studies reviewed. Patient found to have sepsis complicated by scrotal cellulitis, malnutrition, HIV disease, as well as urinary tract infection, and disseminated syphilis. Patient admitted to medical floor and initiated on sepsis protocol. Urology team consulted in ED for suspected surgical intervention. Infectious disease team consulted in ED. Patient was started on vancomycin, cefepime, and fluconazole (for oral candidiasis). Patient underwent CT abdomen and pelvis revealing soft tissue edema as well as punctate foci of soft tissue gas" in addition to having mild drainage from a 2-3 cm testicular ulcer. Patient had a 16 [place] Bright placed by urology, which the patient will be discharged with. Infectious disease has since finalized his antibiotic course which will include IV ceftriaxone 2 g daily (completes on 04/30/2022) in addition to Biktarvy, Flagyl, fluconazole, doxycycline, and Bactrim. Patient has been counseled at length to resume his outpatient HIV management at [facility], the patient expresses understanding. Patient will be discharged home with home health services, wound care, and IV antibiotic management. Patient is medically clear for discharge. 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, disseminated syphilis, oral candidiasis and esophageal candidiasis, HIV/AIDS, moderate protein caloric malnutrition, acute cystitis without hematuria, medication noncompliance Time spent for discharge: 45 min Core Measure Documentation - Palliative Care Palliative Care/ Comfort Measures: Not Applicable - Core Measures Any of the following diagnoses?: none Exam - Constitutional Vitals: Temp Pulse Resp BP Pulse Ox 98.8 F 107 H 16 139/76 96 04/13/22 11:17 04/13/22 11:17 04/13/22 11:17 04/13/22 11:17 04/13/22 11:17 General appearance: Present: no acute distress, well-nourished - EENT Eyes: Present: PERRL, EOM intact ENT: hearing intact, clear oral mucosa, poor dentition - Neck Neck: Present: supple, normal ROM - Respiratory Respiratory effort: normal Respiratory: bilateral: CTA - Cardiovascular Rhythm: regular Heart Sounds: Present: S1 & S2 - Extremities Extremities: no ischemia, pulses intact, pulses symmetrical, No edema, normal temperature, normal color Peripheral Pulses: within normal limits - Abdominal General gastrointestinal: Present: soft, non-tender, non-distended, normal bowel sounds Male genitourinary: Present: tender (testicular cellulitis with exposed testicle; 2cm ulcer) - Rectal Rectal Exam: deferred - Integumentary Integumentary: Present: clear, warm, dry - Musculoskeletal Musculoskeletal: strength equal bilaterally - Psychiatric Psychiatric: appropriate mood/affect, cooperative - Neurologic Neurologic: CNII-XII intact, moves all extremities - Allied Health Allied health notes reviewed: nursing, social work Plan Activity: advance as tolerated Diet: regular Wound: open to air Additional Instructions: The patient is a 42 YO Male with HIV Disease/AIDS with Unknown Viral load, Medication Noncompliance, Malnutrition presents ED for evaluation. Patient reports "my balls are busted". Patient states that he has experienced generalized weakness over the past 6 months with worsening symptoms over the same timeframe. Patient acknowledges generalized weakness, malaise, fatigue. Patient states that he has experienced "a pain over the past 2 weeks with worsening symptoms over the same timeframe. Patient states that he has become unable to walk due to scrotal pain. Patient knowledges foul-smelling discharge from the scrotum. EMS was notified and upon arrival the patient was found to be in distress and subsequent transported to [facility] for further care and evaluation of the aforementioned symptoms. The patient was seen and evaluated emergency department. All lab and imaging studies reviewed. Patient found to have sepsis complicated by scrotal cellulitis, malnutrition, HIV disease, as well as urinary tract infection, and disseminated syphilis. Patient admitted to medical floor and initiated on sepsis protocol. Urology team consulted in ED for suspected surgical intervention. Infectious disease team consulted in ED. Patient was started on vancomycin, cefepime, and fluconazole (for oral candidiasis). Patient underwent CT abdomen and pelvis revealing soft tissue edema as well as punctate foci of soft tissue gas" in addition to having mild drainage from a 2-3 cm testicular ulcer. Patient had a 16 Maced[place] Bright placed by urology, which the patient will be discharged with. Infectious disease has since finalized his antibiotic course which will include IV ceftriaxone 2 g daily (completes on 04/30/2022) in addition to Biktarvy, Flagyl, fluconazole, doxycycline, and Bactrim. Patient has been counseled at length to resume his outpatient HIV management at [facility], the patient expresses understanding. Patient will be discharged home with home health services, wound care, and IV antibiotic management. Patient is medically clear for discharge. Care Plan Goals: Patient is medically cleared for discharge. Assessment: The patient is a 42 YO Male with HIV Disease/AIDS with Unknown Viral load, Medication Noncompliance, Malnutrition presents ED for evaluation. Patient reports "my balls are busted". Patient states that he has experienced generalized weakness over the past 6 months with worsening symptoms over the same timeframe. Patient acknowledges generalized weakness, malaise, fatigue. Patient states that he has experienced "a pain over the past 2 weeks with worsening symptoms over the same timeframe. Patient states that he has become unable to walk due to scrotal pain. Patient knowledges foul-smelling discharge from the scrotum. EMS was notified and upon arrival the patient was found to be in distress and subsequent transported to [facility] for further care and evaluation of the aforementioned symptoms. The patient was seen and evaluated emergency department. All lab and imaging studies reviewed. Patient found to have sepsis complicated by scrotal cellulitis, malnutrition, HIV disease, as well as urinary tract infection, and disseminated syphilis. Patient admitted to medical floor and initiated on sepsis protocol. Urology team consulted in ED for suspected surgical intervention. Infectious disease team consulted in ED. Patient was started on vancomycin, cefepime, and fluconazole (for oral candidiasis). Patient underwent CT abdomen and pelvis revealing soft tissue edema as well as punctate foci of soft tissue gas" in addition to having mild drainage from a 2-3 cm testicular ulcer. Patient had a 16 Maced[place] Bright placed by urology, which the patient will be discharged with. Infectious disease has since finalized his antibiotic course which will include IV ceftriaxone 2 g daily (completes on 04/30/2022) in addition to Biktarvy, Flagyl, fluconazole, doxycycline, and Bactrim. Patient has been counseled at length to resume his outpatient HIV management at [facility], the patient expresses understanding. Patient will be discharged home with home health services, wound care, and IV antibiotic management. Patient is medically clear for discharge. Follow up with: LUCINDA BELL MD [Staff Physician] - 7 Days JONI SANTIZO MD [Staff Physician] - 14 Days Prescriptions: Sulfamethoxazole/Trimethoprim [Bactrim DS TAB] 1 each PO BID #60 tab Bictegrav/Emtricit/Tenofov Ala [Biktarvy 50-200-25 mg Tablet] 1 each PO DAILY #30 tab Fluconazole [Diflucan TAB] 200 mg PO QDAY #17 tablet Doxycycline Hyclate [Doxycycline Hyclate TAB] 100 mg PO Q12HR #34 tab Tamsulosin [Flomax] 0.4 mg PO QDAY #30 capsule levoFLOXacin [Levaquin TAB] 500 mg PO QDAY #16 tablet Acetaminophen/Codeine [Tylenol /Codeine # 3 tab] 1 tab PO Q6H PRN #4 tab PRN Reason: Pain, Moderate (4-6)
[2022-04-13] MEDS: FLUCONAZOLE 400 MG 200 ML IV SCH (17:51)
[2022-04-14] MEDS: VANCOMYCIN/NS 1 GM/250 ML 1 GM/250 ML BAG IV SCH (00:30)
[2022-04-14] MEDS: metroNIDAZOLE 500 MG TAB PO SCH (06:25)
[2022-04-14] MEDS: TAMSULOSIN 0.4 MG CAP PO SCH (09:55)
[2022-04-14] MEDS: DOXYCYCLINE 100 MG CAP PO SCH (09:55)
[2022-04-14] MEDS: NYSTATIN 500,000 UNIT/5 ML ORAL LIQD PO SCH ×2 (09:56→14:09)
[2022-04-14] MEDS: cefTRIAXone/NS 2 GM/100 ML 2 GM/100 ML BAG IV SCH (09:56)
[2022-04-14] MEDS: SULFAMETHOXAZOLE/TRIMETHOPRIM 800/160MG DS TAB PO SCH (09:56)
[2022-04-14 10:41] LABS: Hematocrit 25.8 % (35.5-45.6); Hemoglobin 8.7 gm/dl (11.8-15.2); Mean Corpuscular HGB Conc 34 % (32-34); Mean Corpuscular Volume 81 fl (84-94); Platelet Count 258 K/mm3 (140-440); Red Blood Count 3.17 M/mm3 (3.65-5.03); Red Cell Distribution Width 16.8 % (13.2-15.2)
--- NOTE | 2022-04-14 10:49 | Progress Note ---
Assessment and Plan Cultures: 04/08/2022 blood culture: no growth 04/08/2022 RPR: Reactive, titer: 1:800 04/10/2022 urine culture: No significant growth 04/10/2022 scrotal wound culture: Pseudomonas aeruginosa, E. coli A/P: 42-year-old male with HIV, AIDS, noncompliant with ART, used to follow-up at [facility] came into the emergency room yesterday with complaints of scrotal swelling and pain along with gradually declining functional status over the last 6 months: #Severe scrotal cellulitis, infected wound, exposed testicle: CT revealed soft tissue edema as well as punctate foci of soft tissue gas. Was evaluated by urology, repeat CT was done which showed similar skin thickening and subcutaneous gas at the base of the penis, similar fluid collection along the right lateral base of the prostate gland with small locules of gas. Recommended wound care, Bright with outpatient follow-up. #Secondary syphilis/disseminated syphilis: RPR: Reactive, titer: 1:800, also treat for presumptive neurosyphilis. #Severe oral thrush, likely esophagitis as well: improving. #HIV with AIDS: Used to follow-up with [facility], has not taken ART for more than a year, did not want to tell me the reason. Patient is interested in restarting his HIV meds, used to be on Biktarvy, will restart here. #Protein calorie malnutrition #Poor dentition Recs: -awaiting midline -Continue IV ceftriaxone 2 g daily with end date of 04/30/2022 -P.O. Biktarvy started, upon discharge, please give him a prescription for PO Biktarvy 1 tab daily x 30 days with 1 refill which will give him adequate time to follow-up with his HIV providers at [facility] -Flagyl changed to PO levofloxacin 500 mg daily x 3 weeks, d/w Dr. Ponce. -P.O. fluconazole 200 mg daily for 3 weeks ending 04/30/2022 -P.O. doxycycline 100 mg twice daily for 3 weeks ending 04/30/2022 -P.O. Bactrim DS 1 tablet daily for prophylaxis x 30 days with 1 refill -wound care and outpatient follow-up with urology -Patient was strongly urged to resume his outpatient HIV care with [facility] -Outpatient dental follow-up, has poor dentition and several decayed teeth -Case management orders placed for OPAT: IV antibiotics and weekly labs -HIV RNA PCR, CD4 count pending -guarded prognosis, especially if he remains non-compliant Callie Garsia MD, FACP, JASON [facility] ([facility]) O: [phone] F: [phone] C: [phone] Subjective Date of service: 04/14/22 Interval history: Remains afebrile. Denies any new complaints. Swallowing is much better. Awaiting midline placement. Objective - Exam Narrative Exam: Physical Exam: Constitutional: Alert, cooperative. No acute distress. Cachexia Head, Ears, Nose: Normocephalic, atraumatic. External ears, nose normal Eyes: Conjunctivae/corneas clear. No icterus. No ptosis. Neck: Supple, no meningeal signs Oral: oral thrush resolved, poor dentition + Cardiovascular: S1, S2 + Respiratory: Good air entry, clear to auscultation bilaterally GI: Soft, non-tender; bowel sounds normal. No peritoneal signs : Bright present, scrotal wound with dressing Musculoskeletal: No pedal edema, no cyanosis. Cachexia Skin: Hypopigmented macular rash Hem/Lymphatic: No palpable cervical or supraclavicular nodes. No lymphangitis Psych: mood pleasant Neurological: Awake, alert, oriented. No gross abnormality - Constitutional Vitals: Vital Signs Temp Pulse Resp BP Pulse Ox 98.8 F 107 H 16 139/76 98 04/13/22 11:17 04/13/22 11:17 04/13/22 11:17 04/13/22 11:17 04/13/22 19:44 Temperature -Last 24 Hours Temperature 98.8 F - Labs CBC & Chem 7: 04/13/22 05:34 04/13/22 05:34 Labs: Abnormal lab results 04/13/22 Range/Units 11:15 Crossmatch See Detail
[2022-04-14] MEDS ORDERED: DOLUTEGRAVIR 50 MG, TENOFOVIR 300 MG, EMTRICITABINE 200 MG PO SCH (11:00)
[2022-04-14] MEDS ORDERED: levoFLOXacin 500 MG TAB PO SCH (11:00)
[2022-04-14] MEDS ORDERED: FLUCONAZOLE 200 MG TAB PO SCH (12:00)
[2022-04-14] MEDS ORDERED: DOLUTEGRAVIR 50 MG TAB PO SCH (12:00)
[2022-04-14] MEDS ORDERED: EMTRICITABINE 200 MG CAP PO SCH (12:00)
[2022-04-14] MEDS ORDERED: TENOFOVIR 300 MG TAB PO SCH (12:00)
[2022-04-14 12:07] LABS: Band Neutrophils # (Manual) 0.1 K/mm3; Basophils % (Manual) 0 % (0.0-1.8); Platelet Estimate Consistent w Auto; Total Cells Counted 100
[2022-04-14 12:55] VITALS: BP 123/77
[2022-04-14 20:31] LABS: CD4/CD8 Ratio 0.15 (0.86-5.00)
[2022-04-15 17:35] LABS: HIV-1 RNA QN PCR 5.27 Log cps/mL
== END 2022-04-14 17:00 | disposition home health service (06) | DRG 975 ==
LOC: ED 12:03 → 3A 19:52
PROVIDERS: ADMIT Internal Medicine; ATTEND Student in an Organized Health Care Education/Training Program
PROC: 30233N1 Transfusion of Nonautologous Red Blood Cells into Peripheral Vein, Percutaneous Approach (ICD-10-PCS; principal; 2022-04-13)
PROC: 05HA33Z Insertion of Infusion Device into Left Brachial Vein, Percutaneous Approach (ICD-10-PCS; 2022-04-14)
DX: A41.9 Sepsis, unspecified organism (principal); N30.00 Acute cystitis without hematuria; B20 Human immunodeficiency virus [HIV] disease; B37.0 Candidal stomatitis; E44.0 Moderate protein-calorie malnutrition; Z68.1 Body mass index [BMI] 19.9 or less, adult; Z20.822 Contact with and (suspected) exposure to COVID-19; N49.2 Inflammatory disorders of scrotum; Z91.14 Patient's other noncompliance with medication regimen; E86.0 Dehydration; R62.7 Adult failure to thrive; D64.9 Anemia, unspecified; Z82.49 Family history of ischemic heart disease and other diseases of the circulatory system; K52.9 Noninfective gastroenteritis and colitis, unspecified
CPT/HCPCS: 36415; 71045; 74176; 74177; 80048; 80053; 80202; 81001; 82024; 82140; 82550; 83735; 84439; 84443; 85007; 85025; 85610; 86592; 86593; 86780; 86850; 86900; 86901; 86920; 87040; 87076; 87086; 87116; 87186; 87536; 93005; 94640; G0378; J7517; J0690; J0696; J1450; J2405; J3370; J7030; P9016; Q9967; U0003